=== PATIENT | male | born 1990 | race Two or more races ===

== ENCOUNTER 2021-01-07 16:24 | Inpatient (IN) | payer SELFPAY ==
[~2021-01-07] VITALS: Ht 165.1 cm; Wt 85.3 kg
[2021-01-07] MEDS ORDERED: MORPHINE SULFATE 4 MG/ML INJ. IVP ONE ×2 (16:45→18:45)
[2021-01-07 16:46] LABS: BASO # 0.1 x10^3/uL (0.0-0.2); BASO % 1 % (0-3); EOS # 0.1 x10^3/uL (0.0-0.7); EOS % 1 % (0-3); HEMATOCRIT 43.5 % (39.0-53.0); HEMOGLOBIN 15.2 g/dL (13.0-17.5); LYMPH # 2.8 x10^3/uL (1.0-4.8); LYMPH % 32 % (24-48); MEAN CORPUSCULAR HEMOGLOBIN 32 pg (25-35); MEAN CORPUSCULAR HGB CONC 35 g/dL (31-37); MEAN CORPUSCULAR VOLUME 92 fL (79-100); MONO # 0.8 x10^3/uL (0.0-1.1); MONO % 10 % (0-9); NEUT # 4.9 x10^3/uL (1.8-7.7); NEUT % 56 % (31-73); PLATELET COUNT 259 x10^3/uL (140-400); RED BLOOD COUNT 4.74 x10^6/uL (4.30-5.70); RED CELL DISTRIBUTION WIDTH 13.3 % (11.5-14.5); WHITE BLOOD COUNT 8.7 x10^3/uL (4.0-11.0)
[2021-01-07 16:51] LABS: CALCIUM 9.5 mg/dL (8.5-10.1); CREATININE 1.3 mg/dL (0.7-1.3); POTASSIUM 4.4 mmol/L (3.5-5.1)
[2021-01-07 16:56] LABS: ALBUMIN 4.2 g/dL (3.4-5.0); ALBUMIN/GLOBULIN RATIO 1.1 (1.0-1.7); TOTAL BILIRUBIN 0.5 mg/dL (0.2-1.0)
--- NOTE | 2021-01-07 16:59 | PHYS DOC ---
Past Medical History Additional Past Medical Histor: Previous right ankle surgery Past Surgical History: Other Additional Past Surgical Histo: Right leg/knee General Adult EDM: Chief Complaint: TRAUMA ALERT HPI: HPI: Patient is a 30 year old male who presents with a fall from a ladder. States that he was approximately 10 feet high when the feet slipped out from under him. He fell down and landed on his feet. Had immediate ankle pain bilaterally. Unsure whether he hit his head or passed out. Has some mild pain in his buttocks and low back, but otherwise pain is isolated to his bilateral ankles.He is not on any blood thinners. He does report a history of previous right ankle fracture and surgical fixation. Review of Systems: Review of Systems: Constitutional: Denies fever or chills. [] Eyes: Denies change in visual acuity. [] HENT: Denies nasal congestion or sore throat. [] Respiratory: Denies cough or shortness of breath. [] Cardiovascular: Denies chest pain or edema. [] GI: Denies abdominal pain, nausea, vomiting, bloody stools or diarrhea. [] : Denies dysuria. [] Musculoskeletal: + Right ankle pain, buttocks, and low back pain. [] Integument: Denies rash. [] Neurologic: Denies headache, focal weakness or sensory changes. [] Endocrine: Denies polyuria or polydipsia. [] Lymphatic: Denies swollen glands. [] Psychiatric: Denies depression or anxiety. [] Heart Score: C/O Chest Pain: No Risk Factors: Risk Factors: DM, Current or recent (<one month) smoker, HTN, HLP, family history of CAD, obesity. Risk Scores: Score 0 - 3: 2.5% MACE over next 6 weeks - Discharge Home Score 4 - 6: 20.3% MACE over next 6 weeks - Admit for Clinical Observation Score 7 - 10: 72.7% MACE over next 6 weeks - Early Invasive Strategies Current Medications: Current Medications Medications (Trade) Dose Ordered Sig/Kaleb Start Time Stop Time Status Last Admin Dose Admin Morphine Sulfate (Morphine Sulfate) 4 mg 1X ONCE 01/07/21 16:45 01/07/21 16:46 DC 01/07/21 16:48 4 MG Allergies: Allergies: Allergies Coded Allergies Type Severity Reaction Last Updated Verified No Known Drug Allergies 01/07/21 No Physical Exam: PE: Constitutional: Acutely uncomfortable. Tremulous with pain. [] HENT: No evidence of head or facial trauma. Midface stable. No blood in the nares or mouth.. [] Eyes: PERRLA, EOMI, conjunctiva normal, no discharge. [] Neck: Trachea midline. No C-spine tenderness to palpation. [] Cardiovascular:Heart rate regular rhythm, no murmur [] Lungs & Thorax: Bilateral breath sounds clear to auscultation. Normal chest excursion bilaterally. No crepitus. No tenderness to the chest wall. [] Abdomen: soft, no tenderness, [] Skin: Warm, dry, no erythema, no rash. [] Back: No tenderness, no CVA tenderness. [] Extremities: Pelvis stable to medial and posterior compression. Pubic symphysis stable. Bilateral ankle edema. Has tenderness to the lateral and medial malleoli bilaterally. No tenderness overlying the knees or proximal fibula. Bilateral DP pulses 2+. Neurologic: Alert and oriented X 3, normal motor function, normal sensory function, no focal deficits noted. [] Current Patient Data: Labs: Laboratory Tests Test 01/07/21 16:30 White Blood Count 8.7 x10^3/uL (4.0-11.0) Red Blood Count 4.74 x10^6/uL (4.30-5.70) Hemoglobin 15.2 g/dL (13.0-17.5) Hematocrit 43.5 % (39.0-53.0) Mean Corpuscular Volume 92 fL (79-100) Mean Corpuscular Hemoglobin 32 pg (25-35) Mean Corpuscular Hemoglobin Concent 35 g/dL (31-37) Red Cell Distribution Width 13.3 % (11.5-14.5) Platelet Count 259 x10^3/uL (140-400) Neutrophils (%) (Auto) 56 % (31-73) Lymphocytes (%) (Auto) 32 % (24-48) Monocytes (%) (Auto) 10 % (0-9) H Eosinophils (%) (Auto) 1 % (0-3) Basophils (%) (Auto) 1 % (0-3) Neutrophils # (Auto) 4.9 x10^3/uL (1.8-7.7) Lymphocytes # (Auto) 2.8 x10^3/uL (1.0-4.8) Monocytes # (Auto) 0.8 x10^3/uL (0.0-1.1) Eosinophils # (Auto) 0.1 x10^3/uL (0.0-0.7) Basophils # (Auto) 0.1 x10^3/uL (0.0-0.2) Sodium Level 143 mmol/L (136-145) Potassium Level 4.4 mmol/L (3.5-5.1) Chloride Level 104 mmol/L (98-107) Carbon Dioxide Level 26 mmol/L (21-32) Anion Gap 13 (6-14) Blood Urea Nitrogen 13 mg/dL (8-26) Creatinine 1.3 mg/dL (0.7-1.3) Estimated GFR (Cockcroft-Gault) 64.0 BUN/Creatinine Ratio 10 (6-20) Glucose Level 82 mg/dL (70-99) Calcium Level 9.5 mg/dL (8.5-10.1) Total Bilirubin Pending Aspartate Amino Transferase (AST) Pending Alanine Aminotransferase (ALT) Pending Alkaline Phosphatase Pending Total Protein Pending Albumin Pending Albumin/Globulin Ratio Pending Laboratory Tests 01/07/21 16:30 Laboratory Tests 01/07/21 16:30 Vital Signs: Vital Signs Date Time Temp Pulse Resp B/P (MAP) Pulse Ox O2 Delivery O2 Flow Rate FiO2 01/07/21 16:48 20 98 Room Air 01/07/21 16:24 98.4 88 116/83 98.4 EKG: EKG: [] Radiology/Procedures: Radiology/Procedures: [] Impression: [facility] [address] [place] [address] IMAGING REPORT Signed PATIENT: TAMIKO PEARCE: [id number] : 1990 LOCATION: ER AGE: 30 SEX: M EXAM STATUS: PRE ER ORD. PHYSICIAN: HERNAN RAMIRES MD REASON: fall from ladder PROCEDURE: CT LUMBAR SPINE WO CONTRAST CT LUMBAR SPINE WO Date: 01/07/2021 5:05 PM Indication: fall from ladder, pain Comparison: None. Technique: Helical CT images of the lumbar spine were obtained without contrast. Coronal and sagittal reformatted images were also performed. One or more of the following dose reduction techniques were utilized: Automated exposure control (AEC), Adjustment of mA and/or kV according to patient size, Use of iterative reconstruction technique such as ASiR, CT scan done according to ALARA and image gently/image wisely. Findings: The lumbar spine is normally aligned. No acute fracture. Bilateral L5 pars defects. Vertebral body heights are maintained without compression deformity. The intervertebral disc spaces are normal. No aggressive lytic or blastic osseous lesion. No high grade spinal canal stenosis or neuroforaminal narrowing. No soft tissue abnormality within the visualized abdomen or pelvis. The visualized abdominal aorta is normal caliber. IMPRESSION: No acute osseous abnormality of the lumbar spine. Electronically signed by: Edilson Henao MD (01/07/2021 5:32 PM) [facility] DICTATED and SIGNED BY: EDILSON HENAO MD DATE: 01/07/21 [id number] 0 [facility] [address] [place] [address] IMAGING REPORT Signed PATIENT: TESHA PEARCEOUNT: [id number] : 1990 LOCATION: ER AGE: 30 SEX: M EXAM STATUS: PRE ER ORD. PHYSICIAN: HERNAN RAMIRES MD REASON: fall from ladder PROCEDURE: CT LUMBAR SPINE WO CONTRAST CT LUMBAR SPINE WO Date: 01/07/2021 5:05 PM Indication: fall from ladder, pain Comparison: None. Technique: Helical CT images of the lumbar spine were obtained without contrast. Coronal and sagittal reformatted images were also performed. One or more of the following dose reduction techniques were utilized: Automated exposure control (AEC), Adjustment of mA and/or kV according to patient size, Use of iterative reconstruction technique such as ASiR, CT scan done according to ALARA and image gently/image wisely. Findings: The lumbar spine is normally aligned. No acute fracture. Bilateral L5 pars defects. Vertebral body heights are maintained without compression deformity. The intervertebral disc spaces are normal. No aggressive lytic or blastic osseous lesion. No high grade spinal canal stenosis or neuroforaminal narrowing. No soft tissue abnormality within the visualized abdomen or pelvis. The visualized abdominal aorta is normal caliber. IMPRESSION: No acute osseous abnormality of the lumbar spine. Electronically signed by: Edilson Henao MD (01/07/2021 5:32 PM) [facility] DICTATED and SIGNED BY: EDILSON HENAO MD DATE: 01/07/21 [id number] 0 [facility] [address] [place] [address] [facility] [address] [place] [address] IMAGING REPORT Signed PATIENT: TESHA PEARCEOUNT: [id number] : 1990 LOCATION: ER AGE: 30 SEX: M EXAM STATUS: PRE ER ORD. PHYSICIAN: HERNAN RAMIRES MD REASON: fall from ladder onto feet PROCEDURE: CHEST AP ONLY XR CHEST 1V INDICATION: Reason: fall from ladder onto feet / Spl. Instructions: / History: . COMPARISON STUDY: None. FINDINGS: Lungs: Normal lung volume. No pulmonary mass or consolidation. The tracheobronchial tree and hilar structures are normal. Pleura: No pleural effusion or pneumothorax. Heart and Mediastinum: The cardiomediastinal silhouette is normal. The great vessels of the thorax are normal. Bones and Soft Tissues: The bones and soft tissues are within normal limits. IMPRESSION: No acute cardiopulmonary process. Electronically signed by: Edilson Henao MD (01/07/2021 5:39 PM) [facility] DICTATED and SIGNED BY: EDILSON HENAO MD DATE: 01/07/21 [id number] 0 Course & Med Decision Making: Course & Med Decision Making Pertinent Labs and Imaging studies reviewed. (See chart for details) Patient a 30-year-old male who fell from approximately 10 feet off of a ladder onto his feet. He has bilateral ankle deformities and swelling. On arrival is afebrile and hemodynamically stable. Primary survey negative. Secondary survey notable primarily for ankle deformities. Given distracting injuries and unclear history of head trauma CT head and neck was obtained. Pelvic and chest x-rays did not show any acute traumatic process. X-rays of bilateral feet and ankles ordered. Given his ankle deformities and low back pain did obtain a lumbar CT. 457 CT imaging of the head, neck, lumbar spine negative. X-ray shows a medial malleolar fracture on the right as well as a lateral talar fracture on the right. He is also fractured his talus through the body on the left. Given bilateral lower extremity fractures will require admission. Will discuss with hospitalist and orthopedist on-call. Placed in b/l posterior slab and stirrup splints. [address] Stein (orthopedist) and Dr. Hawkins (foot and ankle specialist). Dr. Hawkins will manage the patient. He is recommending outpatient surgical fixation. He has requested a CT of bilateral feet for surgical planning of talar fx. Feel the patient will require admission for pain control and PT evaluation given b/l fractures. 1854 Emiliano Disclaimer: Emiliano Disclaimer: This electronic medical record was generated, in whole or in part, using a voice recognition dictation system. Departure Departure Impression: Primary Impression: Closed fracture of body of left talus Additional Impressions: Closed fracture of right talus Medial malleolar fracture Disposition: ADMITTED INPATIENT Admitting Physician: VIVEK Jaime) Condition: STABLE HERNAN RAMIRES MD Jan 07, 2021 16:58
[2021-01-07 17:12] LABS: TOTAL PROTEIN 8.1 g/dL (6.4-8.2)
--- NOTE | 2021-01-07 17:32 | RAD ---
CT HEAD AND C-SPINE WO Date: 01/07/2021 5:05 PM Clinical Indication: Reason: fall from ladder / Spl. Instructions: / History: Comparison: None. Technique: 5 mm axial tomographic images were obtained of the head without contrast. These were view ed on brain and bone windows. CT imaging of the cervical spine was performed without contrast. Coron al and sagittal reformatted images were performed. One or more of the following dose reduction techni ques were utilized: Automated exposure control (AEC), Adjustment of mA and/or kV according to patient size, Use of iterative reconstruction technique such as ASiR, CT scan done according to ALARA and im age gently/image wisely HEAD FINDINGS: The brain parenchyma is normal in attenuation. No intra- or extra-axial mass or fluid collection. No acute hemorrhage. The ventricles are normal in size, shape, and morphology. The erwin-white matter cris ction is normal. The basilar cisterns are patent. The visualized paranasal sinuses are normal. The visualized portions of the orbits and globes are no rmal. The mastoid air cells are clear. No aggressive osseous lesion or fracture. CERVICAL SPINE FINDINGS: The cervical spine is normally aligned. No acute fracture. No aggressive lytic or blastic osseous les ion. The intervertebral disc heights are maintained. No high-grade spinal canal stenosis or neural foramin al narrowing. The thyroid gland is normal. No cervical lymphadenopathy. The visualized aerodigestive tract is unrem arkable. The visualized lung apices are clear. IMPRESSION: 1. No acute intracranial process. 2. No acute osseous abnormality of the cervical spine. Electronically signed by: Mariusz Henao MD (01/07/2021 5:30 PM) [facility]
--- NOTE | 2021-01-07 17:35 | RAD ---
CT LUMBAR SPINE WO Date: 01/07/2021 5:05 PM Indication: fall from ladder, pain Comparison: None. Technique: Helical CT images of the lumbar spine were obtained without contrast. Coronal and sagitta l reformatted images were also performed. One or more of the following dose reduction techniques were utilized: Automated exposure control (AEC), Adjustment of mA and/or kV according to patient size, Us e of iterative reconstruction technique such as ASiR, CT scan done according to ALARA and image gentl y/image wisely. Findings: The lumbar spine is normally aligned. No acute fracture. Bilateral L5 pars defects. Vertebral body he ights are maintained without compression deformity. The intervertebral disc spaces are normal. No agg ressive lytic or blastic osseous lesion. No high grade spinal canal stenosis or neuroforaminal narrowing. No soft tissue abnormality within the visualized abdomen or pelvis. The visualized abdominal aorta is normal caliber. IMPRESSION: No acute osseous abnormality of the lumbar spine. Electronically signed by: Mariusz Henao MD (01/07/2021 5:32 PM) [facility]
--- NOTE | 2021-01-07 17:39 | RAD ---
XR BILAT FEET 3 VIEWS, XR EXAM OF ANKLE 3V DATE: 01/07/2021 4:35 PM INDICATION: Pain, fall from ladder onto feet COMPARISON: None. FINDINGS: Right: Acute nondisplaced medial malleolus fracture. Acute nondisplaced fracture of the lateral talar process. Prior ORIF of the tibia with intramedullary maria a. The ankle mortise is congruent. No widenin g of the distal tibiofibular syndesmosis. Lisfranc's joint is congruent. Soft tissue swelling about t he ankle. Left: There is no evidence of acute fracture or dislocation. The ankle mortise is congruent. No widen ing of the distal tibiofibular syndesmosis. Lisfranc's joint is congruent. Soft tissue swelling about the ankle. IMPRESSION: 1. Right: Acute nondisplaced medial malleolus and lateral talar process fractures. 2. Left: No acute fracture. Electronically signed by: Mariusz Henao MD (01/07/2021 5:37 PM) [facility]
--- NOTE | 2021-01-07 17:40 | RAD ---
XR PELVIS 1-2V DATE: 01/07/2021 4:35 PM INDICATION: Pain, fall from ladder onto feet COMPARISON: None. FINDINGS: Bones: There is no evidence of acute fracture or dislocation. Joints: The joint spaces are normal. Miscellaneous: None. IMPRESSION: No evidence of acute fracture. Electronically signed by: Mariusz Henao MD (01/07/2021 5:38 PM) [facility]
--- NOTE | 2021-01-07 17:41 | RAD ---
XR CHEST 1V INDICATION: Reason: fall from ladder onto feet / Spl. Instructions: / History: . COMPARISON STUDY: None. FINDINGS: Lungs: Normal lung volume. No pulmonary mass or consolidation. The tracheobronchial tree and hilar st ructures are normal. Pleura: No pleural effusion or pneumothorax. Heart and Mediastinum: The cardiomediastinal silhouette is normal. The great vessels of the thorax ar e normal. Bones and Soft Tissues: The bones and soft tissues are within normal limits. IMPRESSION: No acute cardiopulmonary process. Electronically signed by: Mariusz Henao MD (01/07/2021 5:39 PM) [facility]
[2021-01-07] MEDS ORDERED: DEXTROSE 50% 25 GM / 50ML DISP.SYRIN. IV PRN (19:15)
[2021-01-07] MEDS ORDERED: PROCHLORPERAZINE 10 MG/2 ML VIAL. IV PRN (19:15)
[2021-01-07] MEDS ORDERED: DOCUSATE SODIUM 100 MG CAPSULE. PO PRN (19:15)
[2021-01-07] MEDS ORDERED: SENNOSIDES 8.6 MG TABLET PO PRN (19:15)
[2021-01-07] MEDS ORDERED: ACETAMINOPHEN 325 MG TABLET. PO PRN (19:15)
[2021-01-07] MEDS ORDERED: ONDANSETRON PF 4 MG/2 ML VIAL. IVP PRN (19:15)
--- NOTE | 2021-01-07 19:17 | PDOC1 ---
History and Physical Date of Service: DOS: DATE: 01/07/21 TIME: 19:11 Chief Complaint: Chief Complain: Fall from 10 foot height History of Present Illness: HPI: Patient is a 30-year-old Kittitian-speaking male who presents as a trauma alert after a fall from a 10 foot ladder. Patient states he was painting the house when he slipped from the ladder and landed on his feet. There is immediate ankle pain after he landed. Denies any loss of consciousness or trauma to the head. No medical history. Patient has had a previous right ankle surgery. Denies any blood thinners, fevers, chest pain, shortness of breath, abdominal pain, syncope, palpitation or irregular heart rhythms or dysuria. Past Medical/Surgical History: PMH/PSH: No past medical history Right ankle surgery Allergies: Allergies: Coded Allergies: No Known Drug Allergies (Unverified , 01/07/21) Family History: Family History: Reviewed with no relevant findings Social History: Social History: Denies any alcohol, smoking or drug abuse. Current Medications: Current Medications Current Medications Morphine Sulfate (Morphine Sulfate) 4 mg 1X ONCE IVP Last administered on 01/07/21at 16:48; Start 01/07/21 at 16:45; Stop 01/07/21 at 16:46; Status DC Morphine Sulfate (Morphine Sulfate) 4 mg 1X ONCE IVP Last administered on 01/07/21at 18:28; Start 01/07/21 at 18:45; Stop 01/07/21 at 18:46; Status DC ROS: Review of Systems Review of System REVIEW OF SYSTEMS: GENERAL: Denies weakness SKIN: No bruising, hair changes or rashes. EYES: No blurred, double or loss of vision. NOSE AND THROAT: No history of nosebleeds, hoarseness or sore throat. HEART: No history of palpitations, chest pain or shortness of breath on exertion. LUNGS: Denies cough, hemoptysis, wheezing or shortness of breath. GASTROINTESTINAL: Denies changes in appetite, nausea, vomiting, diarrhea or constipation. GENITOURINARY: No history of frequency, urgency, hesitancy or nocturia. NEUROLOGIC: Denies history of numbness, tingling, or tremor. PSYCHIATRIC: No history of panic, anxiety or depression. ENDOCRINE: No history of heat or cold intolerance, polyuria or polydipsia. EXTREMITIES: Positive right leg pain Physical Exam: Vital Signs: Vital Signs Date Time Temp Pulse Resp B/P (MAP) Pulse Ox O2 Delivery O2 Flow Rate FiO2 01/07/21 18:28 Room Air 01/07/21 17:05 90 18 119/76 (90) 94 01/07/21 16:24 98.4 98.4 Physcial Exam: General: Well developed, well nourished, no acute distress, well appearing HEENT: Pupils equally round and reactive to light, EOMI, no discharge, normal conjunctiva Neck: Supple, no nuchal rigidity, no JVD, trachea midline, no tenderness Cardiac: RRR, no murmurs, no gallops, no rubs Chest/Lungs: CTAB, no wheeze, no rhonchi, no crackles Abdomen: soft, non-distended, no guarding, no peritoneal signs, non-tender Back: No tenderness Extremities: Bilateral lower extremities and casting. Less than 3-second capillary refill. Warm extremities upper and lower. Neuro: Alert and oriented x 4, no focal deficits, normal speech Labs: Labs: Laboratory Tests Test 01/07/21 16:30 White Blood Count 8.7 x10^3/uL (4.0-11.0) Red Blood Count 4.74 x10^6/uL (4.30-5.70) Hemoglobin 15.2 g/dL (13.0-17.5) Hematocrit 43.5 % (39.0-53.0) Mean Corpuscular Volume 92 fL (79-100) Mean Corpuscular Hemoglobin 32 pg (25-35) Mean Corpuscular Hemoglobin Concent 35 g/dL (31-37) Red Cell Distribution Width 13.3 % (11.5-14.5) Platelet Count 259 x10^3/uL (140-400) Neutrophils (%) (Auto) 56 % (31-73) Lymphocytes (%) (Auto) 32 % (24-48) Monocytes (%) (Auto) 10 % (0-9) Eosinophils (%) (Auto) 1 % (0-3) Basophils (%) (Auto) 1 % (0-3) Neutrophils # (Auto) 4.9 x10^3/uL (1.8-7.7) Lymphocytes # (Auto) 2.8 x10^3/uL (1.0-4.8) Monocytes # (Auto) 0.8 x10^3/uL (0.0-1.1) Eosinophils # (Auto) 0.1 x10^3/uL (0.0-0.7) Basophils # (Auto) 0.1 x10^3/uL (0.0-0.2) Sodium Level 143 mmol/L (136-145) Potassium Level 4.4 mmol/L (3.5-5.1) Chloride Level 104 mmol/L (98-107) Carbon Dioxide Level 26 mmol/L (21-32) Anion Gap 13 (6-14) Blood Urea Nitrogen 13 mg/dL (8-26) Creatinine 1.3 mg/dL (0.7-1.3) Estimated GFR (Cockcroft-Gault) 64.0 BUN/Creatinine Ratio 10 (6-20) Glucose Level 82 mg/dL (70-99) Calcium Level 9.5 mg/dL (8.5-10.1) Total Bilirubin 0.5 mg/dL (0.2-1.0) Aspartate Amino Transf (AST/SGOT) 42 U/L (15-37) Alanine Aminotransferase (ALT/SGPT) 67 U/L (16-63) Alkaline Phosphatase 82 U/L (46-116) Total Protein 8.1 g/dL (6.4-8.2) Albumin 4.2 g/dL (3.4-5.0) Albumin/Globulin Ratio 1.1 (1.0-1.7) Laboratory Tests Test 01/07/21 16:30 White Blood Count 8.7 x10^3/uL (4.0-11.0) Red Blood Count 4.74 x10^6/uL (4.30-5.70) Hemoglobin 15.2 g/dL (13.0-17.5) Hematocrit 43.5 % (39.0-53.0) Mean Corpuscular Volume 92 fL (79-100) Mean Corpuscular Hemoglobin 32 pg (25-35) Mean Corpuscular Hemoglobin Concent 35 g/dL (31-37) Red Cell Distribution Width 13.3 % (11.5-14.5) Platelet Count 259 x10^3/uL (140-400) Neutrophils (%) (Auto) 56 % (31-73) Lymphocytes (%) (Auto) 32 % (24-48) Monocytes (%) (Auto) 10 % (0-9) Eosinophils (%) (Auto) 1 % (0-3) Basophils (%) (Auto) 1 % (0-3) Neutrophils # (Auto) 4.9 x10^3/uL (1.8-7.7) Lymphocytes # (Auto) 2.8 x10^3/uL (1.0-4.8) Monocytes # (Auto) 0.8 x10^3/uL (0.0-1.1) Eosinophils # (Auto) 0.1 x10^3/uL (0.0-0.7) Basophils # (Auto) 0.1 x10^3/uL (0.0-0.2) Sodium Level 143 mmol/L (136-145) Potassium Level 4.4 mmol/L (3.5-5.1) Chloride Level 104 mmol/L (98-107) Carbon Dioxide Level 26 mmol/L (21-32) Anion Gap 13 (6-14) Blood Urea Nitrogen 13 mg/dL (8-26) Creatinine 1.3 mg/dL (0.7-1.3) Estimated GFR (Cockcroft-Gault) 64.0 BUN/Creatinine Ratio 10 (6-20) Glucose Level 82 mg/dL (70-99) Calcium Level 9.5 mg/dL (8.5-10.1) Total Bilirubin 0.5 mg/dL (0.2-1.0) Aspartate Amino Transf (AST/SGOT) 42 U/L (15-37) Alanine Aminotransferase (ALT/SGPT) 67 U/L (16-63) Alkaline Phosphatase 82 U/L (46-116) Total Protein 8.1 g/dL (6.4-8.2) Albumin 4.2 g/dL (3.4-5.0) Albumin/Globulin Ratio 1.1 (1.0-1.7) Images: Images PROCEDURE: CT HEAD AND CERVICAL SPINE WO ADDENDUM ADDENDUM #1 Addendum: Correction: On the left, there is an acute fracture through the body of the talus extending to the subtalar joint Findings discussed with Dr. Chase. Electronically signed by: Mariusz Henao MD (01/07/2021 5:56 PM) [facility] ORIGINAL REPORT CT HEAD AND C-SPINE WO Date: 01/07/2021 5:05 PM Clinical Indication: Reason: fall from ladder / Spl. Instructions: / History: Comparison: None. Technique: 5 mm axial tomographic images were obtained of the head without contrast. These were viewed on brain and bone windows. CT imaging of the cervical spine was performed without contrast. Coronal and sagittal reformatted images were performed. One or more of the following dose reduction techniques were utilized: Automated exposure control (AEC), Adjustment of mA and/or kV according to patient size, Use of iterative reconstruction technique such as ASiR, CT scan done according to ALARA and image gently/image wisely HEAD FINDINGS: The brain parenchyma is normal in attenuation. No intra- or extra-axial mass or fluid collection. No acute hemorrhage. The ventricles are normal in size, shape, and morphology. The erwin-white matter junction is normal. The basilar cisterns are patent. The visualized paranasal sinuses are normal. The visualized portions of the orbits and globes are normal. The mastoid air cells are clear. No aggressive osseous lesion or fracture. CERVICAL SPINE FINDINGS: The cervical spine is normally aligned. No acute fracture. No aggressive lytic or blastic osseous lesion. The intervertebral disc heights are maintained. No high-grade spinal canal stenosis or neural foraminal narrowing. The thyroid gland is normal. No cervical lymphadenopathy. The visualized aerodigestive tract is unremarkable. The visualized lung apices are clear. IMPRESSION: 1. No acute intracranial process. 2. No acute osseous abnormality of the cervical spine. PROCEDURE: CHEST AP ONLY XR CHEST 1V INDICATION: Reason: fall from ladder onto feet / Spl. Instructions: / History: . COMPARISON STUDY: None. FINDINGS: Lungs: Normal lung volume. No pulmonary mass or consolidation. The tracheobronchial tree and hilar structures are normal. Pleura: No pleural effusion or pneumothorax. Heart and Mediastinum: The cardiomediastinal silhouette is normal. The great vessels of the thorax are normal. Bones and Soft Tissues: The bones and soft tissues are within normal limits. IMPRESSION: No acute cardiopulmonary process. PROCEDURE: ANKLE BILAT 3V XR BILAT FEET 3 VIEWS, XR EXAM OF ANKLE 3V DATE: 01/07/2021 4:35 PM INDICATION: Pain, fall from ladder onto feet COMPARISON: None. FINDINGS: Right: Acute nondisplaced medial malleolus fracture. Acute nondisplaced fracture of the lateral talar process. Prior ORIF of the tibia with intramedullary maria a. T he ankle mortise is congruent. No widening of the distal tibiofibular syndesmosis. Lisfranc's joint is congruent. Soft tissue swelling about the ankle. Left: There is no evidence of acute fracture or dislocation. The ankle mortise is congruent. No widening of the distal tibiofibular syndesmosis. Lisfranc's joint is congruent. Soft tissue swelling about the ankle. IMPRESSION: 1. Right: Acute nondisplaced medial malleolus and lateral talar process fractures. 2. Left: No acute fracture. Assessment/Plan Assessment/Plan Trauma Mechanical fall from ladder Right acute nondisplaced medial malleolus and lateral talar process fractures Admit to hospitalist service for further management IV n.p.o. pain control Orthopedic consult External casting in the ED Neurovascular checks per floor protocol Defer to orthopedics for DVT prophylaxis Not indicated now GI prophylaxis ADA diet Full code Discussed with RN and SW Disposition inpatient management as above Surrogate decision maker is Justifications for Admission Other Justification SUBHA DAVIS MD Jan 07, 2021 19:17
--- NOTE | 2021-01-07 19:43 | RAD ---
Exam: Right tibia and fibula INDICATION: Trauma TECHNIQUE: Frontal and lateral views of the right tibia and fibula Comparisons: Ankle radiographs same day FINDINGS: Intramedullary nail at the tibia with fixation screws proximally and distally. There is a fracture to the medial malleolus. Soft tissues are unremarkable. Joint spaces are well-maintained. IMPRESSION: Redemonstration of medial malleolus fracture. Electronically signed by: Preston Espinoza MD (01/07/2021 7:41 PM) [facility]
--- NOTE | 2021-01-07 19:54 | RAD ---
CTA bilateral lower extremities without contrast HISTORY: Bilateral talar fracture Axial helical images were obtained from above the knees through the feet without contrast and axial c oronal sagittal reconstruction was performed. FINDINGS: There is beam Belcher artifact due to a long intramedullary maria a in the right tibia which transfixes a healed fracture of the distal third of the right tibia. There is also an old healed fracture the pro ximal fibula. On the right is an oblique minimally comminuted nondisplaced fracture through the lateral talus and t here is a oblique nondisplaced fracture through the medial malleolus at the level plafond and appear there is an old avulsion injury from the tip of the medial malleolus. On the left there is a mildly comminuted oblique fracture through the mid talus which is minimally di stracted but nondisplaced. There are few tiny fragments which have avulsed from the talus both latera lly and medially. IMPRESSION: Bilateral talar fractures and fracture of the right medial malleolus. End impression PQRS Compliance Statement: One or more of the following individualized dose reduction techniques were utilized for this examinat ion: 1. Automated exposure control 2. Adjustment of the mA and/or kV according to patient size 3. Use of iterative reconstruction technique Electronically signed by: Mg López III, MD (01/07/2021 7:52 PM) [facility]
[2021-01-07 20:55] VITALS: BP 124/73
[2021-01-07] MEDS: IV NORMAL SALINE 1000ML BAG 1,000 ML IV SCH (22:55)
[2021-01-07 23:00] VITALS: BP 122/79
[2021-01-07] MEDS: MORPHINE SULFATE 2 MG/ML INJ. IVP PRN (23:03)
[2021-01-08 03:40] VITALS: BP 116/75
[2021-01-08] MEDS: MORPHINE SULFATE 2 MG/ML INJ. IVP PRN (04:01)
[2021-01-08] MEDS: HYDROcodone/APAP 5/325MG 1 TAB TABLET PO PRN ×3 (04:22→20:11)
[2021-01-08] MEDS: IV NORMAL SALINE 1000ML BAG 1,000 ML IV SCH ×3 (05:15→15:15)
[2021-01-08 07:00] VITALS: BP 113/66
[2021-01-08 09:01] LABS: BASO # 0.1 x10^3/uL (0.0-0.2); BASO % 1 % (0-3); EOS # 0.1 x10^3/uL (0.0-0.7); EOS % 2 % (0-3); HEMATOCRIT 42.9 % (39.0-53.0); HEMOGLOBIN 14.7 g/dL (13.0-17.5); LYMPH # 2.6 x10^3/uL (1.0-4.8); LYMPH % 32 % (24-48); MEAN CORPUSCULAR HEMOGLOBIN 32 pg (25-35); MEAN CORPUSCULAR HGB CONC 34 g/dL (31-37); MEAN CORPUSCULAR VOLUME 93 fL (79-100); MONO % 12 % (0-9); NEUT # 4.3 x10^3/uL (1.8-7.7); NEUT % 53 % (31-73); PLATELET COUNT 225 x10^3/uL (140-400); RED CELL DISTRIBUTION WIDTH 13.8 % (11.5-14.5); WHITE BLOOD COUNT 8.1 x10^3/uL (4.0-11.0)
[2021-01-08 09:16] LABS: CALCIUM 8.8 mg/dL (8.5-10.1); CREATININE 1.1 mg/dL (0.7-1.3); GFR 77.6; MAGNESIUM 1.9 mg/dL (1.8-2.4); PHOSPHORUS 2.9 mg/dL (2.6-4.7); POTASSIUM 3.8 mmol/L (3.5-5.1)
[2021-01-08 11:00] VITALS: BP 107/49
--- NOTE | 2021-01-08 14:31 | PDOC ---
[facility] PROGRESS NOTE Date of Service DOS: DATE: 01/08/21 TIME: 14:28 History of Present Illness History of Present Illness Patient is a 30-year-old Beninese-speaking male who presents as a trauma alert after a fall from a 10 foot ladder. Patient states he was painting the house when he slipped from the ladder and landed on his feet. There is immediate ankle pain after he landed. Denies any loss of consciousness or trauma to the head. No medical history. Patient has had a previous right ankle surgery. Denies any blood thinners, fevers, chest pain, shortness of breath, abdominal pain, syncope, palpitation or irregular heart rhythms or dysuria. 01/08/21 Patient seen and examined at bedside. Reports pain is well controlled. Awaiting plan from orthopedics. Otherwise no changes. Vitals/I&O Vitals/I&O: Vital Signs Date Time Temp Pulse Resp B/P (MAP) Pulse Ox O2 Delivery O2 Flow Rate FiO2 01/08/21 11:00 98.4 96 18 107/49 (68) 97 Room Air 98.4 I & O 01/07/21 01/07/21 01/08/21 15:00 23:00 07:00 Intake Total 120 ml Output Total 250 ml Balance -130 ml Physical Exam General: Alert, Oriented X3, Cooperative Heart: Regular rate, Normal S1, Normal S2 Lungs: Clear Abdomen: Normal bowel sounds, Soft Extremities: Other (Bilateral lower extremities wrapped in soft cast) Skin: No rashes, No significant lesion Labs Labs: Laboratory Tests Test 01/07/21 16:30 01/08/21 08:15 White Blood Count 8.7 x10^3/uL (4.0-11.0) 8.1 x10^3/uL (4.0-11.0) Red Blood Count 4.74 x10^6/uL (4.30-5.70) 4.60 x10^6/uL (4.30-5.70) Hemoglobin 15.2 g/dL (13.0-17.5) 14.7 g/dL (13.0-17.5) Hematocrit 43.5 % (39.0-53.0) 42.9 % (39.0-53.0) Mean Corpuscular Volume 92 fL (79-100) 93 fL (79-100) Mean Corpuscular Hemoglobin 32 pg (25-35) 32 pg (25-35) Mean Corpuscular Hemoglobin Concent 35 g/dL (31-37) 34 g/dL (31-37) Red Cell Distribution Width 13.3 % (11.5-14.5) 13.8 % (11.5-14.5) Platelet Count 259 x10^3/uL (140-400) 225 x10^3/uL (140-400) Neutrophils (%) (Auto) 56 % (31-73) 53 % (31-73) Lymphocytes (%) (Auto) 32 % (24-48) 32 % (24-48) Monocytes (%) (Auto) 10 % (0-9) 12 % (0-9) Eosinophils (%) (Auto) 1 % (0-3) 2 % (0-3) Basophils (%) (Auto) 1 % (0-3) 1 % (0-3) Neutrophils # (Auto) 4.9 x10^3/uL (1.8-7.7) 4.3 x10^3/uL (1.8-7.7) Lymphocytes # (Auto) 2.8 x10^3/uL (1.0-4.8) 2.6 x10^3/uL (1.0-4.8) Monocytes # (Auto) 0.8 x10^3/uL (0.0-1.1) 1.0 x10^3/uL (0.0-1.1) Eosinophils # (Auto) 0.1 x10^3/uL (0.0-0.7) 0.1 x10^3/uL (0.0-0.7) Basophils # (Auto) 0.1 x10^3/uL (0.0-0.2) 0.1 x10^3/uL (0.0-0.2) Sodium Level 143 mmol/L (136-145) 139 mmol/L (136-145) Potassium Level 4.4 mmol/L (3.5-5.1) 3.8 mmol/L (3.5-5.1) Chloride Level 104 mmol/L (98-107) 105 mmol/L (98-107) Carbon Dioxide Level 26 mmol/L (21-32) 29 mmol/L (21-32) Anion Gap 13 (6-14) 5 (6-14) Blood Urea Nitrogen 13 mg/dL (8-26) 14 mg/dL (8-26) Creatinine 1.3 mg/dL (0.7-1.3) 1.1 mg/dL (0.7-1.3) Estimated GFR (Cockcroft-Gault) 64.0 77.6 BUN/Creatinine Ratio 10 (6-20) Glucose Level 82 mg/dL (70-99) 92 mg/dL (70-99) Calcium Level 9.5 mg/dL (8.5-10.1) 8.8 mg/dL (8.5-10.1) Total Bilirubin 0.5 mg/dL (0.2-1.0) Aspartate Amino Transf (AST/SGOT) 42 U/L (15-37) Alanine Aminotransferase (ALT/SGPT) 67 U/L (16-63) Alkaline Phosphatase 82 U/L (46-116) Total Protein 8.1 g/dL (6.4-8.2) Albumin 4.2 g/dL (3.4-5.0) Albumin/Globulin Ratio 1.1 (1.0-1.7) Phosphorus Level 2.9 mg/dL (2.6-4.7) Magnesium Level 1.9 mg/dL (1.8-2.4) Review of Systems Review of Systems: Other than lower extremity pain no complaints Assessment and Plan Assessmemt and Plan Problems Medical Problems: (1) Closed fracture of body of left talus Status: Acute (2) Closed fracture of right talus Status: Acute (3) Medial malleolar fracture Status: Acute Trauma Mechanical fall from ladder Right acute nondisplaced medial malleolus and lateral talar process fractures Admit to hospitalist service for further management Awaiting surgical plan. Told no operation Orthopedic consult External casting in the ED Neurovascular checks per floor protocol Defer to orthopedics for DVT prophylaxis Not indicated now GI prophylaxis ADA diet Full code Discussed with RN and SW Disposition inpatient management as above Surrogate decision maker is Comment Review of Relevant I have reviewed the following items riky (where applicable) has been applied. Medications: Current Medications Medications (Trade) Dose Ordered Sig/Kaleb Route PRN Reason Start Time Stop Time Status Last Admin Dose Admin Morphine Sulfate (Morphine Sulfate) 4 mg 1X ONCE IVP 01/07/21 16:45 01/07/21 16:46 DC 01/07/21 16:48 Morphine Sulfate (Morphine Sulfate) 4 mg 1X ONCE IVP 01/07/21 18:45 01/07/21 18:46 DC 01/07/21 18:28 Sodium Chloride 1,000 ml @ 100 mls/hr Q10H IV 01/07/21 19:15 01/08/21 09:40 Acetaminophen/ Hydrocodone Bitart (Lortab 5/325) 1 tab PRN Q4HRS PRN PO MODERATE PAIN 01/07/21 19:15 01/08/21 04:22 Morphine Sulfate (Morphine Sulfate) 2 mg PRN Q2HR PRN IVP SEVERE PAIN 7-10 01/07/21 19:15 01/08/21 19:14 01/08/21 04:01 Justifications for Admission Other Justification Trauma with fall and right ankle fracture WELLINGTON CRUZ MD Jan 08, 2021 14:31
[2021-01-08 15:02] VITALS: BP 106/63
[2021-01-08 19:15] VITALS: BP 116/64
--- NOTE | 2021-01-08 22:42 | CONS ---
DATE OF CONSULTATION: 01/08/2021 ORTHOPEDIC CONSULTATION REQUESTING PHYSICIAN: Rocael Mclaughlin MD. REASON FOR CONSULTATION: Fall with pain in both feet and ankles. HISTORY OF PRESENT ILLNESS: The patient is a 30-year-old male who was interviewed today with the assistance of a British-speaking nurse acting as computer programming manager. He indicates that he fell from about a 10-foot height on a ladder when he was painting a house and landed on both feet. He had immediate pain in both ankles. Denies any other injury. He did not hit his head. There is no loss of consciousness and he does indicate a history of previous right knee surgery in the remote past. PAST MEDICAL HISTORY: He denies any medical problems. PAST SURGICAL HISTORY: Only for the right knee surgery. ALLERGIES: He has no known drug allergies. MEDICATIONS: No current medications. SOCIAL HISTORY: Denies smoking, alcohol or drug use. REVIEW OF SYSTEMS: Negative for any other recent illness, constitutional symptoms of fever, chills and no other joint injury, no focal weakness or numbness, tingling, only the throbbing pain in both ankles. PHYSICAL EXAMINATION: GENERAL: A pleasant, cooperative 30-year-old male, alert and oriented, no acute distress. EXTREMITIES: He is examined in bed with both legs splinted and elevated. He can wiggle his toes. Distal capillary refill and sensation are intact. He has normal alignment, stability, bilateral hips and knees. IMAGING STUDIES: Imaging findings of both ankles show a talar body fracture with slight distraction on the left side based on a CT findings and the right ankle has a displaced medial malleolar fracture and minimal displacement of the lateral process talus fracture. IMPRESSION: 1. Left talus body fracture. 2. Right medial malleolus fracture with nondisplaced lateral process talus fracture. 3. History of fall on his feet from a 10-foot ladder while painting. TREATMENT PLAN: I had discussed with my Foot and Ankle colleague, Dr. Hawkins the possible treatment of this gentleman and while currently, he seems to have significant swelling after the injury, Dr. Hawkins preferred to have him elevate and let swelling resolve over whatever time. This required likely over the next several days and reevaluate when surgery is possible based on resolution of his swelling for operative reduction of the left talar body fracture as well as the medial malleolus fracture on the right. He remains nonweightbearing in the interim due to both injuries and all his questions were answered in the interim as well. DEWAYNE DR: Nathaniel TID: [id number]
[2021-01-08 23:23] VITALS: BP 109/67
[2021-01-09] MEDS: IV NORMAL SALINE 1000ML BAG 1,000 ML IV SCH ×3 (01:15→21:25)
[2021-01-09 03:34] VITALS: BP 114/72
[2021-01-09 05:26] LABS: BASO # 0.1 x10^3/uL (0.0-0.2); BASO % 1 % (0-3); EOS # 0.2 x10^3/uL (0.0-0.7); EOS % 3 % (0-3); HEMATOCRIT 42.2 % (39.0-53.0); HEMOGLOBIN 14.5 g/dL (13.0-17.5); LYMPH # 3.2 x10^3/uL (1.0-4.8); LYMPH % 41 % (24-48); MEAN CORPUSCULAR HEMOGLOBIN 33 pg (25-35); MEAN CORPUSCULAR HGB CONC 34 g/dL (31-37); MEAN CORPUSCULAR VOLUME 94 fL (79-100); MONO # 0.8 x10^3/uL (0.0-1.1); MONO % 10 % (0-9); NEUT # 3.4 x10^3/uL (1.8-7.7); NEUT % 45 % (31-73); PLATELET COUNT 214 x10^3/uL (140-400); RED BLOOD COUNT 4.46 x10^6/uL (4.30-5.70); RED CELL DISTRIBUTION WIDTH 13.4 % (11.5-14.5); WHITE BLOOD COUNT 7.7 x10^3/uL (4.0-11.0)
[2021-01-09 05:36] LABS: CALCIUM 8.7 mg/dL (8.5-10.1); GFR 86.6; MAGNESIUM 1.9 mg/dL (1.8-2.4); POTASSIUM 4.2 mmol/L (3.5-5.1)
[2021-01-09] MEDS: HYDROcodone/APAP 5/325MG 1 TAB TABLET PO PRN ×3 (06:17→21:25)
[2021-01-09 07:00] VITALS: BP 123/76
--- NOTE | 2021-01-09 10:02 | NUR ---
SW following. Discussed with RN, pt from home, room air, regular diet. PT/OT ordered. Pt needing bed rest until surgery, however cannot have surgery due to swelling. Med Assist following for self pay status. SW will continue to follow.
[2021-01-09 11:00] VITALS: BP 121/77
--- NOTE | 2021-01-09 11:36 | PDOC ---
[facility] PROGRESS NOTE Date of Service DOS: DATE: 01/09/21 TIME: 11:32 Chief Complaint Chief Complaint Trauma Mechanical fall from ladder Right acute nondisplaced medial malleolus and lateral talar process fractures Admit to hospitalist service for further management IV n.p.o. pain control Orthopedic consult External casting in the ED Neurovascular checks per floor protocol Defer to orthopedics for DVT prophylaxis Not indicated now GI prophylaxis ADA diet Full code Discussed with RN and SW Disposition inpatient management as above Surrogate decision maker is History of Present Illness History of Present Illness Patient is a 30-year-old Guinean-speaking male who presents as a trauma alert after a fall from a 10 foot ladder. Patient states he was painting the house when he slipped from the ladder and landed on his feet. There is immediate ankle pain after he landed. Denies any loss of consciousness or trauma to the head. No medical history. Patient has had a previous right ankle surgery. Denies any blood thinners, fevers, chest pain, shortness of breath, abdominal pain, syncope, palpitation or irregular heart rhythms or dysuria. 01/09/2021: Afebrile. Pain controlled. I believe orthopedic surgery plan is to allow the swelling to subside over the next few days and then reevaluate for surgery at that time. Keep nonweightbearing until surgical intervention. Discussed with RN. 01/08/21 Patient seen and examined at bedside. Reports pain is well controlled. Awaiting plan from orthopedics. Otherwise no changes. Vitals/I&O Vitals/I&O: Vital Signs Date Time Temp Pulse Resp B/P (MAP) Pulse Ox O2 Delivery O2 Flow Rate FiO2 01/09/21 08:00 Room Air 01/09/21 07:00 98.0 93 18 123/76 (92) 93 98.0 I & O 01/08/21 01/08/21 01/09/21 15:00 23:00 07:00 Intake Total 240 ml Output Total 700 ml Balance -460 ml Physical Exam General: Alert, Oriented X3, Cooperative Heart: Regular rate, Normal S1, Normal S2 Lungs: Clear Abdomen: Normal bowel sounds, Soft Extremities: Other (Bilateral lower extremities wrapped in soft cast) Skin: No rashes, No significant lesion Labs Labs: Laboratory Tests Test 01/09/21 04:45 White Blood Count 7.7 x10^3/uL (4.0-11.0) Red Blood Count 4.46 x10^6/uL (4.30-5.70) Hemoglobin 14.5 g/dL (13.0-17.5) Hematocrit 42.2 % (39.0-53.0) Mean Corpuscular Volume 94 fL (79-100) Mean Corpuscular Hemoglobin 33 pg (25-35) Mean Corpuscular Hemoglobin Concent 34 g/dL (31-37) Red Cell Distribution Width 13.4 % (11.5-14.5) Platelet Count 214 x10^3/uL (140-400) Neutrophils (%) (Auto) 45 % (31-73) Lymphocytes (%) (Auto) 41 % (24-48) Monocytes (%) (Auto) 10 % (0-9) Eosinophils (%) (Auto) 3 % (0-3) Basophils (%) (Auto) 1 % (0-3) Neutrophils # (Auto) 3.4 x10^3/uL (1.8-7.7) Lymphocytes # (Auto) 3.2 x10^3/uL (1.0-4.8) Monocytes # (Auto) 0.8 x10^3/uL (0.0-1.1) Eosinophils # (Auto) 0.2 x10^3/uL (0.0-0.7) Basophils # (Auto) 0.1 x10^3/uL (0.0-0.2) Sodium Level 140 mmol/L (136-145) Potassium Level 4.2 mmol/L (3.5-5.1) Chloride Level 106 mmol/L (98-107) Carbon Dioxide Level 27 mmol/L (21-32) Anion Gap 7 (6-14) Blood Urea Nitrogen 9 mg/dL (8-26) Creatinine 1.0 mg/dL (0.7-1.3) Estimated GFR (Cockcroft-Gault) 86.6 Glucose Level 100 mg/dL (70-99) Calcium Level 8.7 mg/dL (8.5-10.1) Magnesium Level 1.9 mg/dL (1.8-2.4) Assessment and Plan Assessmemt and Plan Problems Medical Problems: (1) Closed fracture of body of left talus Status: Acute (2) Closed fracture of right talus Status: Acute (3) Medial malleolar fracture Status: Acute Comment Review of Relevant I have reviewed the following items riky (where applicable) has been applied. Justifications for Admission Other Justification Trauma with fall and right ankle fracture NOE JIMENEZ MD Jan 09, 2021 11:36
[2021-01-09] MEDS: HEPARIN for SUB-Q USE 5,000 UNIT/ML VIAL. SQ SCH ×2 (12:35→22:24)
--- NOTE | 2021-01-09 13:44 | PDOC2 ---
CONSULT Date of Consult Date of Consult DATE: 01/09/21 TIME: 13:29 Reason for Consult Reason for Consult: Bilateral foot and ankle pain following a fall from 10 feet-height Referring Physician Referring Physician: Dr. Chase Identification/Chief Complaint Chief Complaint Bilateral foot and ankle pain History of Present Illness Reason for Visit: S/p [01/07/21] fell from a 10-feet ladder, and landed on bilateral feet. He denied hitting the head, anticoagulation therapy. Subsequent ER evaluation consisted of x-ray of the ankle and foot, bilateral which remarked a nondisplaced medial malleolar fracture, nondisplaced but comminuted lateral talar process fracture, right; left talar neck/body comminuted fracture. Because the fractures were minimally to nondisplaced, and both lower extremities were swollen, the decision was made against external fixator application, emergent surgery, but rather, splint immobilization. Further CT of bilateral lower extremity was ordered. At bedside, patient denies any pain to either foot or ankle. However at times, left medial ankle/ rear foot inflicts upwards to 8 out of 10 throbbing achy pain, worse with motion and at night. Otherwise, he has been compliant with nonweightbearing status and bed rest restriction. Patient carries a history of right distal tibial fracture and subsequent ORIF. 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 He says that the family will visit for postoperative recovery. Patient is also Tristanian-speaking. The encounter and interview was conducted with the help of YADIRA Sutherland on the floor. Current Problem List Problem List Problems Medical Problems: (1) Closed fracture of body of left talus Status: Acute (2) Closed fracture of right talus Status: Acute (3) Medial malleolar fracture Status: Acute Current Medications Current Medications Current Medications Morphine Sulfate (Morphine Sulfate) 4 mg 1X ONCE IVP Last administered on 12/25 09/14at 16:48; Start 01/07/21 at 16:45; Stop 01/07/21 at 16:46; Status DC Morphine Sulfate (Morphine Sulfate) 4 mg 1X ONCE IVP Last administered on 01/07/21at 18:28; Start 01/07/21 at 18:45; Stop 01/07/21 at 18:46; Status DC Sennosides (Senna) 17.2 mg PRN BID PRN PO CONSTIPATION; Start 01/07/21 at 19:15 Docusate Sodium (Colace) 100 mg PRN DAILY PRN PO HARD STOOLS; Start 01/07/21 at 19:15 Ondansetron HCl (Zofran) 4 mg PRN Q6HRS PRN IVP NAUSEA/VOMITING, 1st CHOICE; Start 01/07/21 at 19:15 Dextrose (Dextrose 50%-Water Syringe) 12.5 gm PRN Q15MIN PRN IV SEE COMMENTS; Start 01/07/21 at 19:15 Sodium Chloride 1,000 ml @ 100 mls/hr Q10H IV Last administered on 01/09/21at 12:27; Start 01/07/21 at 19:15 Acetaminophen (Tylenol) 650 mg PRN Q4HRS PRN PO TEMP OVER 100.4F OR MILD PAIN; Start 01/07/21 at 19:15 Acetaminophen/ Hydrocodone Bitart (Lortab 5/325) 1 tab PRN Q4HRS PRN PO MODERATE PAIN Last administered on 01/08/21at 04:22; Start 01/07/21 at 19:15 Acetaminophen/ Hydrocodone Bitart (Lortab 5/325) 2 tab PRN Q4HRS PRN PO SEVERE PAIN Last administered on 01/09/21at 06:17; Start 01/07/21 at 19:15 Morphine Sulfate (Morphine Sulfate) 1 mg PRN Q1HR PRN IV PAIN; Start 01/07/21 at 19:15 Morphine Sulfate (Morphine Sulfate) 2 mg PRN Q2HR PRN IVP SEVERE PAIN 7-10 Last administered on 01/08/21at 04:01; Start 01/07/21 at 19:15; Stop 01/08/21 at 19:14; Status DC Prochlorperazine Edisylate (Compazine) 10 mg PRN Q6HRS PRN IV NAUSEA/VOMITING- 2ND CHOICE; Start 01/07/21 at 19:15 Heparin Sodium (Porcine) (Heparin Sodium) 5,000 unit Q8HRS SQ Last administered on 01/09/21at 12:35; Start 01/09/21 at 14:00 Allergies Allergies: Coded Allergies: No Known Drug Allergies (Unverified , 01/07/21) ROS General: No: Chills, Night Sweats, Fatigue, Malaise, Appetite, Other PSYCHOLOGICAL ROS: No: Anxiety, Behavioral Disorder, Concentration difficultie, Decreased libido, Depression, Disorientation, Hallucinations, Hostility, Irritablity, Memory difficulties, Mood Swings, Obsessive thoughts, Physical abuse, Sexual abuse, Sleep disturbances, Suicidal ideation, Other ALLERGY AND IMMUNOLOGY: No: Hives, Insect Bite Sensitivity, Itchy/Watery Eyes, Nasal Congestion, Post Nasal Drip, Seasonal Allergies, Other Hematological and Lymphatic: No: Bleeding Problems, Blood Clots, Blood Transfusions, Brusing, Night Sweats, Pallor, Swollen Lymph Nodes, Other ENDOCRINE: No: Breast Changes, Galactorrhea, Hair Pattern Changes, Hot Flashes, Malaise/lethargy, Mood Swings, Palpitations, Polydipsia/polyuria, Skin Changes, Temperature Intolerance, Unexpected Weight Changes, Other Respiratory: No: Cough, Hemoptysis, Orthopnea, Pleuritic Pain, Shortness of breath, SOB with excertion, Sputum Changes, Stridor, Tachypnea, Wheezing, Other Cardiovascular: No Chest Pain, No Palpitations, No Orthopnea, No Paroxysmal Noc. Dyspnea, No Edema, No Lt Headedness, No Other Musculoskeletal: Yes Gait Disturbance, Yes Joint Pain, Yes Joint Stiffness Neurological: No Behavorial Changes, No Bowel/Bladder ControlChng, No Confusion, No Dizziness, No Gait Disturbance, No Headaches, No Impaired Coord/balance, No Memory Loss, No Numbness/Tingling, No Seizures, No Speech Problems, No Tremors, No Visual Changes, No Weakness, No Other Skin: Yes Dry Skin Physical Exam General: Alert, Oriented X3, Cooperative, No acute distress Heart: Other (No significant edema to the digits or the dorsal right foot or ankle. CFT less than 3 seconds 1 through 5, bilateral) Skin: No breakdown, Other (No fracture blisters, skin tenting, or open lesion. Limited window through the splint anteriorly and medially, there is no severe ecchymosis to the provisional surgical site along the talar body/neck, left. There is no severe ecchymosis to the medial malleolus, right either.) Neuro: Sensation intact, Other (Able to move digits without any pain or limitation) MUSCULOSKELETAL: Other (-Left: minimal to no TTP to the dorsal and medial aspect of the talar head and neck, range of motion across the TMJ, subtalar joint and ankle joint was deferred as the lower extremity was immobilized in a posterior splint and sugar tong.-Right: No TTP to medial anterior ankle gutter, ankle and subtalar range of motion was deferred due to the posterior splint and sugar tong.) Vitals VITALS Vital Signs Date Time Temp Pulse Resp B/P (MAP) Pulse Ox O2 Delivery O2 Flow Rate FiO2 01/09/21 11:00 98.4 66 14 121/77 (92) 99 Room Air 98.4 Labs Labs Laboratory Tests Test 01/07/21 16:30 01/08/21 08:15 01/09/21 04:45 White Blood Count 8.7 x10^3/uL (4.0-11.0) 8.1 x10^3/uL (4.0-11.0) 7.7 x10^3/uL (4.0-11.0) Red Blood Count 4.74 x10^6/uL (4.30-5.70) 4.60 x10^6/uL (4.30-5.70) 4.46 x10^6/uL (4.30-5.70) Hemoglobin 15.2 g/dL (13.0-17.5) 14.7 g/dL (13.0-17.5) 14.5 g/dL (13.0-17.5) Hematocrit 43.5 % (39.0-53.0) 42.9 % (39.0-53.0) 42.2 % (39.0-53.0) Mean Corpuscular Volume 92 fL (79-100) 93 fL (79-100) 94 fL (79-100) Mean Corpuscular Hemoglobin 32 pg (25-35) 32 pg (25-35) 33 pg (25-35) Mean Corpuscular Hemoglobin Concent 35 g/dL (31-37) 34 g/dL (31-37) 34 g/dL (31-37) Red Cell Distribution Width 13.3 % (11.5-14.5) 13.8 % (11.5-14.5) 13.4 % (11.5-14.5) Platelet Count 259 x10^3/uL (140-400) 225 x10^3/uL (140-400) 214 x10^3/uL (140-400) Neutrophils (%) (Auto) 56 % (31-73) 53 % (31-73) 45 % (31-73) Lymphocytes (%) (Auto) 32 % (24-48) 32 % (24-48) 41 % (24-48) Monocytes (%) (Auto) 10 % (0-9) 12 % (0-9) 10 % (0-9) Eosinophils (%) (Auto) 1 % (0-3) 2 % (0-3) 3 % (0-3) Basophils (%) (Auto) 1 % (0-3) 1 % (0-3) 1 % (0-3) Neutrophils # (Auto) 4.9 x10^3/uL (1.8-7.7) 4.3 x10^3/uL (1.8-7.7) 3.4 x10^3/uL (1.8-7.7) Lymphocytes # (Auto) 2.8 x10^3/uL (1.0-4.8) 2.6 x10^3/uL (1.0-4.8) 3.2 x10^3/uL (1.0-4.8) Monocytes # (Auto) 0.8 x10^3/uL (0.0-1.1) 1.0 x10^3/uL (0.0-1.1) 0.8 x10^3/uL (0.0-1.1) Eosinophils # (Auto) 0.1 x10^3/uL (0.0-0.7) 0.1 x10^3/uL (0.0-0.7) 0.2 x10^3/uL (0.0-0.7) Basophils # (Auto) 0.1 x10^3/uL (0.0-0.2) 0.1 x10^3/uL (0.0-0.2) 0.1 x10^3/uL (0.0-0.2) Sodium Level 143 mmol/L (136-145) 139 mmol/L (136-145) 140 mmol/L (136-145) Potassium Level 4.4 mmol/L (3.5-5.1) 3.8 mmol/L (3.5-5.1) 4.2 mmol/L (3.5-5.1) Chloride Level 104 mmol/L (98-107) 105 mmol/L (98-107) 106 mmol/L (98-107) Carbon Dioxide Level 26 mmol/L (21-32) 29 mmol/L (21-32) 27 mmol/L (21-32) Anion Gap 13 (6-14) 5 (6-14) 7 (6-14) Blood Urea Nitrogen 13 mg/dL (8-26) 14 mg/dL (8-26) 9 mg/dL (8-26) Creatinine 1.3 mg/dL (0.7-1.3) 1.1 mg/dL (0.7-1.3) 1.0 mg/dL (0.7-1.3) Estimated GFR (Cockcroft-Gault) 64.0 77.6 86.6 BUN/Creatinine Ratio 10 (6-20) Glucose Level 82 mg/dL (70-99) 92 mg/dL (70-99) 100 mg/dL (70-99) Calcium Level 9.5 mg/dL (8.5-10.1) 8.8 mg/dL (8.5-10.1) 8.7 mg/dL (8.5-10.1) Total Bilirubin 0.5 mg/dL (0.2-1.0) Aspartate Amino Transf (AST/SGOT) 42 U/L (15-37) Alanine Aminotransferase (ALT/SGPT) 67 U/L (16-63) Alkaline Phosphatase 82 U/L (46-116) Total Protein 8.1 g/dL (6.4-8.2) Albumin 4.2 g/dL (3.4-5.0) Albumin/Globulin Ratio 1.1 (1.0-1.7) Phosphorus Level 2.9 mg/dL (2.6-4.7) Magnesium Level 1.9 mg/dL (1.8-2.4) 1.9 mg/dL (1.8-2.4) Laboratory Tests Test 01/09/21 04:45 White Blood Count 7.7 x10^3/uL (4.0-11.0) Red Blood Count 4.46 x10^6/uL (4.30-5.70) Hemoglobin 14.5 g/dL (13.0-17.5) Hematocrit 42.2 % (39.0-53.0) Mean Corpuscular Volume 94 fL (79-100) Mean Corpuscular Hemoglobin 33 pg (25-35) Mean Corpuscular Hemoglobin Concent 34 g/dL (31-37) Red Cell Distribution Width 13.4 % (11.5-14.5) Platelet Count 214 x10^3/uL (140-400) Neutrophils (%) (Auto) 45 % (31-73) Lymphocytes (%) (Auto) 41 % (24-48) Monocytes (%) (Auto) 10 % (0-9) Eosinophils (%) (Auto) 3 % (0-3) Basophils (%) (Auto) 1 % (0-3) Neutrophils # (Auto) 3.4 x10^3/uL (1.8-7.7) Lymphocytes # (Auto) 3.2 x10^3/uL (1.0-4.8) Monocytes # (Auto) 0.8 x10^3/uL (0.0-1.1) Eosinophils # (Auto) 0.2 x10^3/uL (0.0-0.7) Basophils # (Auto) 0.1 x10^3/uL (0.0-0.2) Sodium Level 140 mmol/L (136-145) Potassium Level 4.2 mmol/L (3.5-5.1) Chloride Level 106 mmol/L (98-107) Carbon Dioxide Level 27 mmol/L (21-32) Anion Gap 7 (6-14) Blood Urea Nitrogen 9 mg/dL (8-26) Creatinine 1.0 mg/dL (0.7-1.3) Estimated GFR (Cockcroft-Gault) 86.6 Glucose Level 100 mg/dL (70-99) Calcium Level 8.7 mg/dL (8.5-10.1) Magnesium Level 1.9 mg/dL (1.8-2.4) Images Images CT of bilateral lower extremity: Right: S/p distal tibial fracture and proximal fibula fracture and subsequent IM nail. Questionable re-stress to the proximal fibula fracture? Or partial pseudoarthrosis across the fracture site. Comminuted, nondisplaced lateral talar process fracture. Accessory bone to the distal medial malleolus. The syndesmotic joint is intact without any subluxation. No posterior tibial fracture noted. Left: Comminuted, minimally to nondisplaced talar neck and body fracture without subtalar joint or ankle joint subluxation. The medial articular surface/facet has the most comminution. Accessory bone to the distal medial malleolus. Assessment/Plan Assessment/Plan -Explained clinical and x-ray/CT findings to patient. So far, the medial malleolus fracture is isolated and without any surrounding or concomitant posterior fracture, fibula fracture. However given the contralateral talar fracture involvement, I recommended open reduction and internal fixation of the medial malleolus to provide a stable ankle mortise to allow partial weig htbearing. Intraoperatively, I will also stress the syndesmotic joint and possible place a syndesmotic screw/suture tape for stabilization. Although the lateral talar fracture is comminuted, however it is nondisplaced. Surgical ORIF is challenging and may cause more soft tissue damage than splinting instead. Regarding the left talar fracture, the comminution and mild displacement warrant surgical intervention with the goal of better articular surface/range of motion/function adventist. However we need to optimize soft tissue, and allow swelling reduction before making incisions to avoid postoperative dehiscence or infection. Therefore recommended surgical intervention on January 11, 2021. -I discussed in depth and details regarding the risks of arthritis from the time of injury, possible nerve/tendon damage, risk of infection, DVT and the recovery course consisted of nonweightbearing to left/right lower extremity for 6 to 8 weeks followed by physical therapy, duration pending clinical progression. Patient verbalized understanding and consented for the procedures: Right medial malleolar ORIF, possible syndesmotic joint stabilization, left talar neck/body ORIF. -Activity: Elevate bilateral lower extremity 45 minutes/h, ice behind the knee 15 minutes/h, per tolerance Strict nonweightbearing restriction to bilateral lower extremity Strict bed rest with bedside commode privilege -PT/OT: Upper body mobility exercises, avoid plantar ankle, foot range of motion or manipulation -Pain management: RICE therapy, continue with current regimen -DVT prophylaxis: Recommend Lovenox, 40mg, subq daily, stop 24 hours before surgery and resume 24 hours after -N.p.o. after midnight on January 10 -Appreciate social work associate's help on placement after surgery: Recommend patient staying at the hospital for pain management until surgery and may stay for another 24 hours for postoperative pain management and then discharge as appropriate Informed Consent Discussion: I have discussed the purpose, risks, benefits, and alternatives to the procedure and plan of care including potential side effects and complications, both of which may be severe and require additional surgery and/or procedures to treat this with the patient/guardian(s). We discussed the risks and benefits of alternative treatment options and the likelihood of achieving the desired outcome with surgery. Procedure specific discussion is documented below. The risks, benefits and alternatives of the proposed surgery were discussed with the patient, including the option of further non-operative treatment. The possibility of perioperative complications leading to disability and were explained. Patient understands the risks of surgery include but are not limited to failure of the procedure, delayed or non-healing wound, bleeding, infection, venous thrombus/embolus, nerve, vessel, tendon and bone damage, the complications of anesthesia, reaction to sutures or other implanted material, stiffness, chronic pain/swelling, malunion/nonunion, the need for other operations and future revision surgery. No guarantees were given or implied. The patient's questions were answered in depth and patient is willing to proceed. MONICA GARCIA DPM Jan 09, 2021 13:44
[2021-01-09 15:00] VITALS: BP 110/76
[2021-01-09] MEDS: MORPHINE SULFATE 2 MG/ML INJ. IV PRN (17:21)
[2021-01-09 19:00] VITALS: BP 115/84
[2021-01-09 23:00] VITALS: BP 112/80
[2021-01-10 02:50] VITALS: BP 108/84
[2021-01-10] MEDS: HEPARIN for SUB-Q USE 5,000 UNIT/ML VIAL. SQ SCH ×3 (05:56→23:54)
[2021-01-10 07:00] VITALS: BP 115/79
[2021-01-10] MEDS: IV NORMAL SALINE 1000ML BAG 1,000 ML IV SCH ×2 (07:51→17:47)
[2021-01-10] MEDS: MORPHINE SULFATE 2 MG/ML INJ. IV PRN ×2 (07:52→14:40)
[2021-01-10] MEDS: HYDROcodone/APAP 5/325MG 1 TAB TABLET PO PRN ×3 (07:52→23:46)
[2021-01-10 11:00] VITALS: BP 122/74
[2021-01-10 13:01] LABS: BASO % 1 % (0-3); EOS # 0.2 x10^3/uL (0.0-0.7); EOS % 3 % (0-3); HEMATOCRIT 44.2 % (39.0-53.0); LYMPH # 2.3 x10^3/uL (1.0-4.8); LYMPH % 38 % (24-48); MEAN CORPUSCULAR HEMOGLOBIN 32 pg (25-35); MEAN CORPUSCULAR HGB CONC 34 g/dL (31-37); MEAN CORPUSCULAR VOLUME 94 fL (79-100); MONO # 0.5 x10^3/uL (0.0-1.1); MONO % 8 % (0-9); NEUT # 3.1 x10^3/uL (1.8-7.7); NEUT % 50 % (31-73); PLATELET COUNT 262 x10^3/uL (140-400); RED CELL DISTRIBUTION WIDTH 13.4 % (11.5-14.5); WHITE BLOOD COUNT 6.1 x10^3/uL (4.0-11.0)
[2021-01-10 13:15] LABS: CREATININE 0.9 mg/dL (0.7-1.3); GFR 97.8; POTASSIUM 4.2 mmol/L (3.5-5.1)
[2021-01-10 15:00] VITALS: BP 116/68
--- NOTE | 2021-01-10 16:33 | PDOC ---
[facility] PROGRESS NOTE Date of Service DOS: DATE: 01/10/21 TIME: 16:32 Chief Complaint Chief Complaint Trauma Mechanical fall from ladder Right acute nondisplaced medial malleolus and lateral talar process fractures Admit to hospitalist service for further management IV n.p.o. pain control Orthopedic consult External casting in the ED Neurovascular checks per floor protocol Defer to orthopedics for DVT prophylaxis Not indicated now GI prophylaxis ADA diet Full code Discussed with RN and SW Disposition inpatient management as above Surrogate decision maker is History of Present Illness History of Present Illness Patient is a 30-year-old Nauruan-speaking male who presents as a trauma alert after a fall from a 10 foot ladder. Patient states he was painting the house when he slipped from the ladder and landed on his feet. There is immediate ankle pain after he landed. Denies any loss of consciousness or trauma to the head. No medical history. Patient has had a previous right ankle surgery. Denies any blood thinners, fevers, chest pain, shortness of breath, abdominal pain, syncope, palpitation or irregular heart rhythms or dysuria. 01/10/2021: Afebrile. Denies significant pain. Surgery planned for tomorrow. He will need to begin working with PT/OT on the day following surgery. Discussed with RN. 01/09/2021: Afebrile. Pain controlled. I believe orthopedic surgery plan is to allow the swelling to subside over the next few days and then reevaluate for surgery at that time. Keep nonweightbearing until surgical intervention. Discussed with RN. 01/08/21 Patient seen and examined at bedside. Reports pain is well controlled. Awaiting plan from orthopedics. Otherwise no changes. Vitals/I&O Vitals/I&O: Vital Signs Date Time Temp Pulse Resp B/P (MAP) Pulse Ox O2 Delivery O2 Flow Rate FiO2 01/10/21 15:10 Room Air 01/10/21 15:00 98.0 74 16 116/68 (84) 96 98.0 I & O 01/09/21 01/09/21 01/10/21 15:00 23:00 07:00 Output Total 550 ml Balance -550 ml Physical Exam General: Alert, Oriented X3, Cooperative, No acute distress Heart: Other (No significant edema to the digits or the dorsal right foot or ankle. CFT less than 3 seconds 1 through 5, bilateral) Lungs: Clear Abdomen: Normal bowel sounds, Soft Extremities: Other (Bilateral lower extremities wrapped in soft cast) Skin: No breakdown, Other (No fracture blisters, skin tenting, or open lesion. Limited window through the splint anteriorly and medially, there is no severe ecchymosis to the provisional surgical site along the talar body/neck, left. There is no severe ecchymosis to the medial malleolus, right either.) Labs Labs: Laboratory Tests Test 01/10/21 12:05 White Blood Count 6.1 x10^3/uL (4.0-11.0) Red Blood Count 4.70 x10^6/uL (4.30-5.70) Hemoglobin 15.0 g/dL (13.0-17.5) Hematocrit 44.2 % (39.0-53.0) Mean Corpuscular Volume 94 fL (79-100) Mean Corpuscular Hemoglobin 32 pg (25-35) Mean Corpuscular Hemoglobin Concent 34 g/dL (31-37) Red Cell Distribution Width 13.4 % (11.5-14.5) Platelet Count 262 x10^3/uL (140-400) Neutrophils (%) (Auto) 50 % (31-73) Lymphocytes (%) (Auto) 38 % (24-48) Monocytes (%) (Auto) 8 % (0-9) Eosinophils (%) (Auto) 3 % (0-3) Basophils (%) (Auto) 1 % (0-3) Neutrophils # (Auto) 3.1 x10^3/uL (1.8-7.7) Lymphocytes # (Auto) 2.3 x10^3/uL (1.0-4.8) Monocytes # (Auto) 0.5 x10^3/uL (0.0-1.1) Eosinophils # (Auto) 0.2 x10^3/uL (0.0-0.7) Basophils # (Auto) 0.0 x10^3/uL (0.0-0.2) Sodium Level 139 mmol/L (136-145) Potassium Level 4.2 mmol/L (3.5-5.1) Chloride Level 103 mmol/L (98-107) Carbon Dioxide Level 30 mmol/L (21-32) Anion Gap 6 (6-14) Blood Urea Nitrogen 11 mg/dL (8-26) Creatinine 0.9 mg/dL (0.7-1.3) Estimated GFR (Cockcroft-Gault) 97.8 Glucose Level 101 mg/dL (70-99) Calcium Level 9.0 mg/dL (8.5-10.1) Magnesium Level 2.0 mg/dL (1.8-2.4) Assessment and Plan Assessmemt and Plan Problems Medical Problems: (1) Closed fracture of body of left talus Status: Acute (2) Closed fracture of right talus Status: Acute (3) Medial malleolar fracture Status: Acute Comment Review of Relevant I have reviewed the following items riky (where applicable) has been applied. Justifications for Admission Other Justification Trauma with fall and right ankle fracture NOE JIMENEZ MD Jan 10, 2021 16:33
[2021-01-10 18:48] VITALS: BP 121/66
[2021-01-10 23:20] VITALS: BP 130/72
[2021-01-11] VITALS (8 sets, daily range): BP systolic 123–136; BP diastolic 65–82
[2021-01-11] MEDS: IV NORMAL SALINE 1000ML BAG 1,000 ML IV SCH (03:15)
[2021-01-11] MEDS ORDERED: HYDROmorphone 2 MG/ML VIAL IVP PRN (06:00)
[2021-01-11] MEDS ORDERED: PROCHLORPERAZINE 10 MG/2 ML VIAL. IVP PRN (06:00)
[2021-01-11] MEDS ORDERED: fentaNYL PF VIAL 100 MCG/2 ML VIAL IVP PRN ×2 (06:00)
[2021-01-11] MEDS ORDERED: MORPHINE SULFATE 2 MG/ML INJ. IVP PRN (06:00)
[2021-01-11] MEDS ORDERED: IV RINGERS,LACTATED 1000ML 1,000 ML IV SCH (06:00)
[2021-01-11] MEDS: HEPARIN for SUB-Q USE 5,000 UNIT/ML VIAL. SQ SCH ×3 (06:00→20:16)
[2021-01-11] MEDS: MORPHINE SULFATE 2 MG/ML INJ. IV PRN ×3 (07:30→19:05)
--- NOTE | 2021-01-11 11:07 | PDOC ---
[facility] PROGRESS NOTE Date of Service DOS: DATE: 01/11/21 TIME: 11:06 Chief Complaint Chief Complaint Trauma Mechanical fall from ladder Right acute nondisplaced medial malleolus and lateral talar process fractures Admit to hospitalist service for further management IV n.p.o. pain control Orthopedic consult External casting in the ED Neurovascular checks per floor protocol Defer to orthopedics for DVT prophylaxis Not indicated now GI prophylaxis ADA diet Full code Discussed with RN and SW Disposition inpatient management as above Surrogate decision maker is History of Present Illness History of Present Illness Patient is a 30-year-old Singaporean-speaking male who presents as a trauma alert after a fall from a 10 foot ladder. Patient states he was painting the house when he slipped from the ladder and landed on his feet. There is immediate ankle pain after he landed. Denies any loss of consciousness or trauma to the head. No medical history. Patient has had a previous right ankle surgery. Denies any blood thinners, fevers, chest pain, shortness of breath, abdominal pain, syncope, palpitation or irregular heart rhythms or dysuria. 01/11/2021: Surgery planned today. Reports some pain in his bilateral feet. Will need to work with PT/OT tomorrow. Discussed with RN. 01/10/2021: Afebrile. Denies significant pain. Surgery planned for tomorrow. He will need to begin working with PT/OT on the day following surgery. Discussed with RN. 01/09/2021: Afebrile. Pain controlled. I believe orthopedic surgery plan is to allow the swelling to subside over the next few days and then reevaluate for surgery at that time. Keep nonweightbearing until surgical intervention. Discussed with RN. 01/08/21 Patient seen and examined at bedside. Reports pain is well controlled. Awaiti ng plan from orthopedics. Otherwise no changes. Vitals/I&O Vitals/I&O: Vital Signs Date Time Temp Pulse Resp B/P (MAP) Pulse Ox O2 Delivery O2 Flow Rate FiO2 01/11/21 11:04 97.9 75 18 136/82 (100) 98 Room Air 97.9 I & O 01/10/21 01/10/21 01/11/21 15:00 23:00 07:00 Intake Total 180 ml 240 ml Output Total 700 ml 550 ml Balance -520 ml -310 ml Physical Exam General: Alert, Oriented X3, Cooperative, No acute distress Heart: Other (No significant edema to the digits or the dorsal right foot or ankle. CFT less than 3 seconds 1 through 5, bilateral) Lungs: Clear Abdomen: Normal bowel sounds, Soft Extremities: Other (Bilateral lower extremities wrapped in soft cast) Skin: No breakdown, Other (No fracture blisters, skin tenting, or open lesion. Limited window through the splint anteriorly and medially, there is no severe ecchymosis to the provisional surgical site along the talar body/neck, left. T here is no severe ecchymosis to the medial malleolus, right either.) Labs Labs: Laboratory Tests Test 01/10/21 12:05 White Blood Count 6.1 x10^3/uL (4.0-11.0) Red Blood Count 4.70 x10^6/uL (4.30-5.70) Hemoglobin 15.0 g/dL (13.0-17.5) Hematocrit 44.2 % (39.0-53.0) Mean Corpuscular Volume 94 fL (79-100) Mean Corpuscular Hemoglobin 32 pg (25-35) Mean Corpuscular Hemoglobin Concent 34 g/dL (31-37) Red Cell Distribution Width 13.4 % (11.5-14.5) Platelet Count 262 x10^3/uL (140-400) Neutrophils (%) (Auto) 50 % (31-73) Lymphocytes (%) (Auto) 38 % (24-48) Monocytes (%) (Auto) 8 % (0-9) Eosinophils (%) (Auto) 3 % (0-3) Basophils (%) (Auto) 1 % (0-3) Neutrophils # (Auto) 3.1 x10^3/uL (1.8-7.7) Lymphocytes # (Auto) 2.3 x10^3/uL (1.0-4.8) Monocytes # (Auto) 0.5 x10^3/uL (0.0-1.1) Eosinophils # (Auto) 0.2 x10^3/uL (0.0-0.7) Basophils # (Auto) 0.0 x10^3/uL (0.0-0.2) Sodium Level 139 mmol/L (136-145) Potassium Level 4.2 mmol/L (3.5-5.1) Chloride Level 103 mmol/L (98-107) Carbon Dioxide Level 30 mmol/L (21-32) Anion Gap 6 (6-14) Blood Urea Nitrogen 11 mg/dL (8-26) Creatinine 0.9 mg/dL (0.7-1.3) Estimated GFR (Cockcroft-Gault) 97.8 Glucose Level 101 mg/dL (70-99) Calcium Level 9.0 mg/dL (8.5-10.1) Magnesium Level 2.0 mg/dL (1.8-2.4) Assessment and Plan Assessmemt and Plan Problems Medical Problems: (1) Closed fracture of body of left talus Status: Acute (2) Closed fracture of right talus Status: Acute (3) Medial malleolar fracture Status: Acute Comment Review of Relevant I have reviewed the following items riky (where applicable) has been applied. Justifications for Admission Other Justification Trauma with fall and right ankle fracture NOE JIMENEZ MD Jan 11, 2021 11:07
[2021-01-11] MEDS ORDERED: BUPIVACAINE MPF 0.25% 30 ML VIAL. ONE (11:29)
[2021-01-11] MEDS ORDERED: BUPIVACAINE-EPI 0.25%-1:200000 MPF 30 ML VIAL. ONE (11:30)
[2021-01-11] MEDS ORDERED: ePHEDrine PF IN SALINE 50 MG/10 ML SYRINGE. IV ONE (11:39)
[2021-01-11] MEDS ORDERED: PROPOFOL 10 MG/ML (20ML) VIAL. IV ONE (11:39)
[2021-01-11] MEDS ORDERED: ONDANSETRON PF 4 MG/2 ML VIAL. ONE (11:39)
[2021-01-11] MEDS ORDERED: PHENYLEPHRINE in 0.9% NACL PF 1 MG/10 ML SYRINGE. IV ONE (11:39)
[2021-01-11] MEDS ORDERED: LIDOCAINE 1% PF 5 ML VIAL. ONE (11:39)
[2021-01-11] MEDS ORDERED: GLYCOPYRROLATE 1 MG/5 ML VIAL. ONE (11:39)
[2021-01-11] MEDS ORDERED: DEXAMETHASONE SOD PHOS 4 MG/ML VIAL ONE (11:39)
[2021-01-11] MEDS ORDERED: MIDAZOLAM HCL/PF 2 MG/2 ML VIAL. ONE (11:40)
[2021-01-11] MEDS ORDERED: NEOSTIGMINE 10 MG/10 ML VIAL. ONE (11:40)
[2021-01-11] MEDS ORDERED: SUCCINYLCHOLINE 200 MG/10 ML VIAL. ONE (11:40)
[2021-01-11] MEDS ORDERED: ROCURONIUM 50 MG/5 ML VIAL. ONE (11:40)
[2021-01-11] MEDS ORDERED: fentaNYL PF VIAL 250 MCG/5 ML VIAL ONE (11:41)
--- NOTE | 2021-01-11 11:45 | NUR ---
SW following. Discussed with RN, pt having surgery today. Med Assist following for self pay status. SW will continue to follow.
[2021-01-11] MEDS ORDERED: BUPIVACAINE MPF 0.5% 30 ML VIAL. ONE (12:23)
[2021-01-11] MEDS ORDERED: HYDROmorphone 2 MG/ML VIAL ONE ×2 (13:18→17:20)
[2021-01-11] MEDS ORDERED: POVIDONE-IODINE 10% TOPICAL OINTMENT 28GM TUBE. TP ONE (15:52)
[2021-01-11] MEDS ORDERED: ceFAZolin SODIUM IV Push 1 GM VIAL. IVP ONE (16:14)
[2021-01-11] MEDS ORDERED: ACETAMINOPHEN 325 MG TABLET. PO ONE (17:00)
[2021-01-11] MEDS ORDERED: oxyCODONE/APAP 5/325 1 TAB TABLET PO ONE (17:00)
--- NOTE | 2021-01-11 17:09 | PDOC4 ---
OPERATIVE NOTE Date: Date: Jan 11, 2021 Pre-Op Diagnosis: Right isolated medial malleolus fracture, nondisplaced without fibular or posterior tibial fracture. Nondisplaced comminuted lateral talar fracture. Left comminuted, minimally displaced talar neck/body fracture with mild compression shortening to the medial talar body. Multiple fracture fragments were also noted on CT at the dorsal anterior talar dome. Post-Op Diagnosis: Same as above Procedure Performed: Right medial malleoli are fracture open reduction and internal fixation Left talar fracture open reduction and internal fixation, ankle arthrotomy, loose body excision from the ankle joint Surgeon: Monica Garcia DPM Anesthesia Type: General Blood Loss: 10 cc Specimans Obtained: None Findings: Right: Isolated to distal medial malodor fracture, stable Lisfranc joint/ligament upon stress, stable proximal fibular remodeling from prior injury, stable upon stress. Left: Comminuted talar body/neck fracture with most of the fragments delaminated dorsally distally at the talar dome. No fracture fragment was noted or encountered to the lateral process. The ossicle bone to the medial malleolus was not palpable or impinging upon range of motion. Mild bony castelan injury and bone loss to the medial dorsal talar dome and neck. Postoperative x-ray noted restored talar neck anatomy/length without varus rotation. The hardware were within acceptable position in length. Ankle mortise and canal view of the left foot and ankle remarked adequate anatomical reduction. Complications: None Operative Note: The patient was brought to the operating room and placed on the table in supine position. A time out was performed, to confirm patient's identity, location of surgery, and procedure. After induction of general anesthesia and intravenous antibiotics, a well-padded pneumatic thigh tourniquet was placed onto both R and L lowert extremities. following standard aspectic technique, a iyer was placed. The bilateral lower extremity was scrubbed, prepped and draped in the usual sterile manner. under intra-op XR guidance, the R ankle joint, fracture site were identified and marked on skin. An Esmarch bandage was utilized to exsanguinate the right lower leg, and the tourniquet was inflated to 250 millimeters of mercury. Attention was directed to the medial right ankle where a standard linear approach was performed. The incision was deepened using sharp and blunt dissection down to the level of the periosteum, which was incised. Care was taken to retract all vital neurovascular structures and all bleeders were cauterized as needed. The fracture was identified and all interposed periosteum was resected away from the fracture site. The posterior tibial tendon was protected throughout the procedure. The wound was copiously irrigated with normal saline. Further lateral talar dome inspection was negative for any OCD lesions. The fracture site was reduced with a bone clamp. Next, two guide pins were placed across the fracture site in a parallel fashion. C-arm was utilized to confirm the placement and length. Next, two 4.0 partially treaded cancellous screws, 40 mm and 42mm,were placed sequentially in AO fashion. The imaging intensifier was then utilized to confirm the positioning, length and to ensure no violation of the articular surface had occurred. Both screws purchased the medial cortex well to compensate for the short length in the setting of a prior IM nail which was concerning for hardware placement limitation.The fracture appeared to be anatomically reduced, and the mortise was anatomic. Subsequent syndesmotic joint stress with dorsiflexion and eversion remarked stability across the ankle gutters without any diastases between the tibia-fibula, gapping to the medial ankle gutter.There was no proximal fibular fracture instability upon syndesmotic stress test either. The wounds were copiously irrigated with normal saline. Closure was performed in layers using 3-0 Vicryl and 4-0 Monocryl, and skin was reapproximated with 4-0 nylon. The surgical site was covered with Xeroform, 4 x 4, and Tegaderm. Medial ankle palpation was negative for any prominent hardware. Mild compression was achieved with Coban. Tourniquet was let down on the right lower extremity which noted adequate hyperemic perfusion. Then the attention was directed to the left talus. Under intraoperative x-ray guidance, the ankle joint, medial and lateral TMJ, medial lateral talar neck were identified and marked for provisional surgical incision placement. An Esmarch was used to exsanguinate the left lower extremity. The pressure was set at 250 millimercury. Medial skin incision was made between the tibialis anterior and posterior tibialis tendons, starting at the distal tibial metaphysis to the level of TNJ. The lateral skin incision was made just lateral to the EDL from the distal syndesmotic joint to the lateral TNJ. Both skin incisions were deepened with blunt dissection with care to protect and retract all neurovascular bundles. After that, the deep fascia was incised with a Bovie in line with the skin incision on both medial lateral ankle. ATFL was transected at the level of the lateral ankle gutter to allow adequate visualization of the talar dome. Care was taken to minimally dissect the TNJ capsule, sinus tarsi, plantar talar neck both medially and laterally to reduce the risk of talar AVN and nonunion. A periosteal elevator was used to elevate the ankle capsule off the talus and to expose/visualize the medial lateral talar dome. The medial lateral windows were connected by rolling the Victoria from the proximal ankle joint distally to the level of mid dorsal talar neck to fully appreciated the extent and character istics of the talar dome/neck fractures. Copious saline solution was used to irrigate the wound site. At this time, Talar dome/neck inspection remarked comminuted partially delaminated and detached fragments to the anterior margin of the talar dome, just distal away from the articular surface. No loose body or free fragments were noted to either medial lateral ankle gutter. On the medial talar neck and head transition site, there was evidence of crush injury with a small void of bone deficit. There was also slight internal rotation of the talus based on the medial cortical read. But upon gentle stress the distal neck talar fracture was relatively stable without gross instability. At this time, copious saline solution again was used to flush the surgical site to reduce and flush out any hematoma. And further inspection was negative for any gross or apparent talar dome lesion given the anterior window inspection. Fracture reduction was achieved with a sharp reduction clamp using the lateral cortical read on the lateral talar dome/neck and also the Mendoza's angle on AP foot view. Then, 2 guidewires for 3 mm cannulated, titanium, headless screws were placed on each the medial and lateral talar neck, perpendicular to the fracture sites, using standard AO techniques. The screws were below the equator of the talar neck for plantar tension stability. Clinically, the fracture sites were reduced without any remarks of varus talar malposition. Adequate and satisfactory screw position and length were confirmed using intraoperative x-ray with special views of 3 views of ankle, 2 views of foot with additional canal view to assess the talar neck. Passive ankle range of motion was negative for any clicking, catching or impingement. The surgical site was irrigated with copious saline solution. The ATFL was reapproximated with 2-0 FiberWire. The retinaculum was repaired with 3-0 Vicryl. The medial capsule was repaired with a combination of 2-0 FiberWire 3-0 Vicryl. Inspection was negative for any PT tendon violation or insufficiency. The skin was closed in layers with 4-0 Monocryl and 4 nylon. A postoperative block To both ankle/footwas administered for pain control using 30 cc of 0.5% marcaine plain. Incision site was covered with betadine ointment and adaptic. The tourniquet was deflated at this time and hyperemia was noted to the operative foot and leg. A dry sterile dressing and a well padded posterior splint with added sugar tong was applied to Left lower extremitywhile the ankle with held dorsiflexed and inverted.The right lower extremity was redressed with Betadine soaked Adaptic, 4 x 4, Kerlix and Rajinder compression. It was further immobilized in a tall E boot. Patient tolerated anesthesia, procedure well with vascular status intact to Both surgical lower extremities. Patient was then transferred to PACU for continued recovery. Pending 3 view of the surgical foot/ankle x-ray. MONICA GARCIA DPM Jan 11, 2021 17:09
[2021-01-11] MEDS: HYDROcodone/APAP 5/325MG 1 TAB TABLET PO PRN (19:05)
--- NOTE | 2021-01-11 20:55 | RAD ---
Three-view left foot and three-view left ankle dated 01/11/2021. No comparison available. Clinical data indication: Postop. FINDINGS: 3 views left ankle show 2 corticated screws stabilizing fracture at the talar neck. Alignme nt near-anatomic. Distal tibia and fibular intact. There is diffuse soft tissue swelling with overlyi ng cast. 3 views of left foot show normal bony alignment. Evaluation is somewhat limited due to overlying cast . No displaced fracture. IMPRESSION: 1. Status post ORIF of talar neck fracture. Electronically signed by: Kalen Mata MD (01/11/2021 8:52 PM) TABATHA
--- NOTE | 2021-01-11 20:57 | RAD ---
Three-view right ankle dated 01/11/2021. COMPARISON: 01/07/2021. CLINICAL INDICATION: Postop FINDINGS: 3 views the right ankle show interval screw fixation of lateral malleoli or fracture with near anatom ic alignment. 2 lag screws have been placed. A comminuted fracture through the lateral talus is again demonstrated. Distal fibula is intact. There is been anterior grade intramedullary nail placement of the tibia with old healed fracture of the distal one third tibial shaft, unchanged. IMPRESSION: 1. Status post screw fixation of medial malleoli fracture. 2. Lateral talus fracture, unchanged. Electronically signed by: Kalen Mata MD (01/11/2021 8:55 PM) TABATHA
[2021-01-11] MEDS: GABAPENTIN 100 MG CAPSULE. PO SCH (21:11)
[2021-01-11] MEDS: MORPHINE SULFATE 4 MG/ML INJ. IV PRN (23:25)
[2021-01-12 02:19] VITALS: BP 130/67
[2021-01-12] MEDS: HYDROcodone/APAP 5/325MG 1 TAB TABLET PO PRN ×4 (04:52→20:46)
[2021-01-12] MEDS: MORPHINE SULFATE 4 MG/ML INJ. IV PRN ×3 (04:52→22:25)
[2021-01-12] MEDS: HEPARIN for SUB-Q USE 5,000 UNIT/ML VIAL. SQ SCH ×3 (06:25→22:19)
[2021-01-12 07:00] VITALS: BP 117/64
[2021-01-12 11:00] VITALS: BP 113/64
[2021-01-12] MEDS: GABAPENTIN 100 MG CAPSULE. PO SCH ×3 (11:24→20:45)
--- NOTE | 2021-01-12 13:22 | PDOC ---
[facility] PROGRESS NOTE Date of Service DOS: DATE: 01/12/21 TIME: 13:20 Chief Complaint Chief Complaint Trauma Mechanical fall from ladder Right acute nondisplaced medial malleolus and lateral talar process fractures Admit to hospitalist service for further management IV n.p.o. pain control Orthopedic consult External casting in the ED Neurovascular checks per floor protocol Defer to orthopedics for DVT prophylaxis Not indicated now GI prophylaxis ADA diet Full code Discussed with RN and SW Disposition inpatient management as above Surrogate decision maker is History of Present Illness History of Present Illness Patient is a 30-year-old [place]-speaking male who presents as a trauma alert after a fall from a 10 foot ladder. Patient states he was painting the house when he slipped from the ladder and landed on his feet. There is immediate ankle pain after he landed. Denies any loss of consciousness or trauma to the head. No medical history. Patient has had a previous right ankle surgery. Denies any blood thinners, fevers, chest pain, shortness of breath, abdominal pain, syncope, palpitation or irregular heart rhythms or dysuria. 01/12/2021: Patient seen and evaluated POD #1, s/p right medial malleoli open reduction internal fixation, left talar fracture open reduction and internal fixation. States pain currently well controlled. Not yet worked with PT/OT; recommend working with PT/OT as tolerable today. 01/11/2021: Surgery planned today. Reports some pain in his bilateral feet. Will need to work with PT/OT tomorrow. Discussed with RN. 01/10/2021: Afebrile. Denies significant pain. Surgery planned for tomorrow. He will need to begin working with PT/OT on the day following surgery. Discussed with RN. 01/09/2021: Afebrile. Pain controlled. I believe orthopedic surgery plan is to allow the swelling to subside over the next few days and then reevaluate for surgery at that time. Keep nonweightbearing until surgical intervention. Discussed with RN. 01/08/21 Patient seen and examined at bedside. Reports pain is well controlled. Awaiting plan from orthopedics. Otherwise no changes. Vitals/I&O Vitals/I&O: Vital Signs Date Time Temp Pulse Resp B/P (MAP) Pulse Ox O2 Delivery O2 Flow Rate FiO2 01/12/21 11:24 95 Room Air 2.0 01/12/21 11:00 98.1 82 18 113/64 (80) 98.1 I & O 01/11/21 01/11/21 01/12/21 15:00 23:00 07:00 Intake Total 2300 ml 0 ml Output Total 200 ml 335 ml Balance -200 ml 1965 ml 0 ml Physical Exam General: Alert, Oriented X3, Cooperative, No acute distress Heart: Other (No significant edema to the digits or the dorsal right foot or ankle. CFT less than 3 seconds 1 through 5, bilateral) Lungs: Clear Abdomen: Normal bowel sounds, Soft Extremities: Other (Bilateral lower extremities wrapped in soft cast) Skin: No breakdown, Other (No fracture blisters, skin tenting, or open lesion. Limited window through the splint anteriorly and medially, there is no severe ecchymosis to the provisional surgical site along the talar body/neck, left. There is no severe ecchymosis to the medial malleolus, right either.) Assessment and Plan Assessmemt and Plan Problems Medical Problems: (1) Closed fracture of body of left talus Status: Acute (2) Closed fracture of right talus Status: Acute (3) Medial malleolar fracture Status: Acute Comment Review of Relevant I have reviewed the following items riky (where applicable) has been applied. Medications: Current Medications Medications (Trade) Dose Ordered Sig/Kaleb Route PRN Reason Start Time Stop Time Status Last Admin Dose Admin Povidone Iodine (Betadine Oint) 28 cat STK-MED ONCE TP 01/11/21 15:52 01/11/21 15:52 DC 01/11/21 16:13 Gabapentin (Neurontin) 100 mg TID PO 01/11/21 21:00 01/12/21 11:24 Cefazolin Sodium/ Dextrose 50 ml @ 100 mls/hr 1X ONCE IV 01/11/21 17:00 01/11/21 17:03 DC 01/11/21 16:30 Morphine Sulfate (Morphine Sulfate) 4 mg PRN Q1HR PRN IV SEVERE PAIN 01/11/21 19:45 01/12/21 11:23 Justifications for Admission Other Justification Trauma with fall and right ankle fracture NOE JIMENEZ MD Jan 12, 2021 13:22
--- NOTE | 2021-01-12 14:26 | NUR ---
SW following. Discussed with RN, NATIVIDAD met with pt, pt reported his mother is coming from [place] tomorrow with a wheelchair, but if we can get him transportation home today he is happy to go home today. NATIVIDAD notified Dr. Rothman. NATIVIDAD will continue to follow.
[2021-01-12 15:00] VITALS: BP 128/67
--- NOTE | 2021-01-12 15:48 | PDOC ---
SUBJECTIVE Subjective S/p right medial ankle ORIF, left talar ORIF. At bedside, patient was seen resting comfortably without any distress. Denies any pain to the right lower extremity, occasional left foot/ankle sharp pain upwards to 6 out of 10. Otherwise, he has been compliant with elevation, icing, nonweightbearing restriction. The dressings are tolerated well and kept clean, dry and intact. He denies any constitutional symptoms. However, he denies any bowel movement in the last 4 days. OBJECTIVE Vital Signs Vital Signs Date Time Temp Pulse Resp B/P (MAP) Pulse Ox O2 Delivery O2 Flow Rate FiO2 01/12/21 13:28 95 Room Air 2.0 01/12/21 13:27 95 Room Air 2.0 01/12/21 11:24 95 Room Air 2.0 01/12/21 11:23 95 Room Air 01/12/21 11:00 98.1 82 18 113/64 (80) 95 Room Air 98.1 01/12/21 07:00 97.6 90 18 117/64 (81) 95 Room Air 97.6 01/12/21 05:22 18 01/12/21 05:22 18 01/12/21 04:52 20 99 Room Air 01/12/21 04:52 99 Room Air 2.0 01/12/21 02:19 98.0 91 18 130/67 (88) 99 Room Air 98.0 01/11/21 23:55 20 98 Room Air 01/11/21 23:25 18 98 Room Air 01/11/21 22:55 98.1 93 18 123/65 (84) 100 Room Air 98.1 01/11/21 20:00 Room Air 01/11/21 19:35 20 95 Nasal Cannula 2.0 01/11/21 19:35 20 95 Nasal Cannula 2.0 01/11/21 19:05 Room Air 01/11/21 19:05 Room Air 01/11/21 18:15 91 18 132/79 (96) 95 Room Air 01/11/21 18:01 94 18 131/72 (91) 98 Room Air 01/11/21 17:45 95 18 131/74 (93) 98 Room Air 01/11/21 17:40 94 18 125/75 (92) 96 Room Air 01/11/21 17:30 Nasal Cannula 2 01/11/21 17:28 98.5 94 15 134/75 93 Room Air 98.5 01/11/21 17:20 94 16 133/76 93 Room Air 01/11/21 17:20 15 93 Room Air 01/11/21 17:05 90 16 145/75 100 Room Air 01/11/21 16:50 90 16 135/69 100 Simple Mask 6 01/11/21 16:35 98.6 95 16 142/82 95 Room Air 98.6 01/11/21 16:35 Room Air I & O Intake and Output 01/12/21 07:00 Intake Total 2300 ml Output Total 535 ml Balance 1765 ml Intake Oral 100 ml IV Total 2200 ml Output Urine Total 525 ml Estimated Blood Loss 10 ml PHYSICAL EXAM Physical Exam General: AOx3 without distress Dermatology: Postoperative dressings are clean, dry and intact. No strikethrough was noted. Neurology: Light touch sensation to digits 1 through 5 are intact, bilateral Vascular: No ischemic or cyanotic changes to the digits 1 through 5, bilateral Musculoskeletal: -Able to move digits, bilateral -Left lower extremity is immobilized in a posterior splint with added sugar tong. Range of motion, palpation were deferred -Right lower extremity is immobilized in a soft compression dressing. Range of motion was deferred. Minimal to no TTP to the medial ankle with palpation -Calf is soft and nontender, bilateral ASSESSMENT/PLAN Assessment/Plan S/p January 11, 2021 right medial ankle ORIF, left talar ORIF -Explained to family and patient that the right medial ankle fracture is isolated without any concomitant proximal fibular fracture or syndesmotic joint instability upon stress. The lateral talar process fracture is comminuted however nondisplaced. No surgical intervention is indicated for talus. Educated them on the risk of arthritis in the future. As for the left talar fracture, the comminuted loose body in the ankle gutter and joint were excised. The main articular surface across the ankle joint remained relatively intact after debridement. 2 screws were used to stabilize the talar neck/body fractures. The risks and barriers with talar body fracture and recovery is AVN, persistent pain, DJD, neuralgia and wound dehiscence. Patient and family verbalized understanding -From my standpoint, patient is safe to discharge home as long as the pain is well controlled through oral medicine, demonstrate the ability to pivot, transfer without putting pressure on the left lower extremity with physical therapy, supportive and safe home going environment -This is the discharge instruction after surgery: 1. Activity: Strict nonweightbearing to the left lower extremity while immobilized in a splint. Minimal touchdown on right foot while protected in the tall Eboot upwards to 5 minutes/h if the pain is less than 3 out of 10. When at rest, it is okay to remove the boot off the right lower extremity. 2. Dressing change: Keep both lower extremity dressings clean, dry and intact. Prematurely taking off the dressing or getting the dressing wet/dirty will increase the risk of infection 3. Elevate both feet with toes to the heart level, ideally 45 minutes/h to control and manage swelling 4. Pain management: Gabapentin 100 mg, 3 times daily on schedule for 15 days, Tylenol 650 mg, 3 times a day on schedule for 10 days, Alden 5/325 mg, every 6 hours as needed [pain greater than 5/10], #20. 5. Ice behind both knees, 5 minutes/h as needed for pain 6. Our office will call patient for postoperative follow-up, 2 weeks from the surgery date 7. Please discharge with incentive spirometry, and encourage compliance 8. DVT prophylaxis: Per hospitalist recommendation for 14 days after surgery 9. Monitor for signs of infection or any constitutional symptoms and return with caution Justifications for Admission Other Justification Trauma with fall and right ankle fracture MONICA GARCIA DPM Jan 12, 2021 15:47
[2021-01-12] MEDS ORDERED: SENNOSIDES/DOCUSATE 8.6/50MG TABLET. PO PRN (16:00)
[2021-01-12] MEDS ORDERED: ACETAMINOPHEN 325 MG TABLET. PO PRN (16:00)
--- NOTE | 2021-01-12 16:22 | NUR ---
Spoke to Dr. Hawkins who states patient may discharge on 01/13/21 if meets safety criteria referenced in his note on 01/12/21 including being seen by PT/OT prior to discharge, VTE prophylaxis per hospitalist, and pain medications provided to patient per hospitalist (Dr. Hawkins left recommendations in note).
[2021-01-12 19:00] VITALS: BP 125/84
--- NOTE | 2021-01-12 21:24 | NUR ---
iyer discontinued at 01/12/21 [id number]
[2021-01-12 22:29] VITALS: BP 118/66
[2021-01-13 02:44] VITALS: BP 126/68
[2021-01-13] MEDS: HYDROcodone/APAP 5/325MG 1 TAB TABLET PO PRN ×4 (05:08→20:49)
[2021-01-13] MEDS: HEPARIN for SUB-Q USE 5,000 UNIT/ML VIAL. SQ SCH ×3 (05:11→21:29)
[2021-01-13 07:00] VITALS: BP 141/85
[2021-01-13 08:25] LABS: RED BLOOD COUNT 4.55 x10^6/uL (4.30-5.70); RED CELL DISTRIBUTION WIDTH 13.6 % (11.5-14.5); WHITE BLOOD COUNT 9.7 x10^3/uL (4.0-11.0)
[2021-01-13 08:42] LABS: CALCIUM 9.2 mg/dL (8.5-10.1); GFR 86.6; POTASSIUM 4.3 mmol/L (3.5-5.1)
[2021-01-13] MEDS: GABAPENTIN 100 MG CAPSULE. PO SCH ×3 (10:12→20:50)
--- NOTE | 2021-01-13 10:24 | NUR ---
SW following. Discussed with RN, pt needing to demonstrate safe transferring with PT/OT today prior to discharge. Pt's mother bringing a wheelchair for pt. SW will continue to follow.
[2021-01-13 11:00] VITALS: BP 161/86
[2021-01-13] MEDS: MORPHINE SULFATE 4 MG/ML INJ. IV PRN ×3 (13:13→21:31)
--- NOTE | 2021-01-13 14:23 | PDOC ---
[facility] PROGRESS NOTE Date of Service DOS: DATE: 01/13/21 TIME: 14:21 Chief Complaint Chief Complaint Trauma Mechanical fall from ladder Right acute nondisplaced medial malleolus and lateral talar process fractures Admit to hospitalist service for further management IV n.p.o. pain control Orthopedic consult External casting in the ED Neurovascular checks per floor protocol Defer to orthopedics for DVT prophylaxis Not indicated now GI prophylaxis ADA diet Full code Discussed with RN and SW Disposition inpatient management as above Surrogate decision maker is History of Present Illness History of Present Illness Patient is a 30-year-old Latvian-speaking male who presents as a trauma alert after a fall from a 10 foot ladder. Patient states he was painting the house when he slipped from the ladder and landed on his feet. There is immediate ankle pain after he landed. Denies any loss of consciousness or trauma to the head. No medical history. Patient has had a previous right ankle surgery. Denies any blood thinners, fevers, chest pain, shortness of breath, abdominal pain, syncope, palpitation or irregular heart rhythms or dysuria. 01/13/2021: Work with physical therapy, still having difficulty with transitioning. Complains of pain in bilateral ankles. Discussed with PT, they are concerned about patient's ability to discharge home with family care at this time. Will provide further IV pain management prior to discharge home. Anticipate discharge home with family care on Saturday. 01/12/2021: Patient seen and evaluated POD #1, s/p right medial malleoli open reduction internal fixation, left talar fracture open reduction and internal fixation. States pain currently well controlled. Not yet worked with PT/OT; recommend working with PT/OT as tolerable today. 01/11/2021: Surgery planned today. Reports some pain in his bilateral feet. Will need to work with PT/OT tomorrow. Discussed with RN. 01/10/2021: Afebrile. Denies significant pain. Surgery planned for tomorrow. He will need to begin working with PT/OT on the day following surgery. Discussed with RN. 01/09/2021: Afebrile. Pain controlled. I believe orthopedic surgery plan is to allow the swelling to subside over the next few days and then reevaluate for surgery at that time. Keep nonweightbearing until surgical intervention. Discussed with RN. 01/08/21 Patient seen and examined at bedside. Reports pain is well controlled. Awaiting plan from orthopedics. Otherwise no changes. Vitals/I&O Vitals/I&O: Vital Signs Date Time Temp Pulse Resp B/P (MAP) Pulse Ox O2 Delivery O2 Flow Rate FiO2 01/13/21 13:43 Room Air 01/13/21 11:00 98.4 87 18 161/86 (111) 95 98.4 01/12/21 19:43 2.0 I & O 01/12/21 01/12/21 01/13/21 14:59 22:59 06:59 Intake Total 540 ml Output Total 430 ml 400 ml 800 ml Balance -430 ml -400 ml -260 ml Physical Exam General: Alert, Oriented X3, Cooperative, No acute distress Heart: Other (No significant edema to the digits or the dorsal right foot or ankle. CFT less than 3 seconds 1 through 5, bilateral) Lungs: Clear Abdomen: Normal bowel sounds, Soft Extremities: Other (Bilateral lower extremities wrapped in soft cast) Skin: No breakdown, Other (No fracture blisters, skin tenting, or open lesion. Limited window through the splint anteriorly and medially, there is no severe ecchymosis to the provisional surgical site along the talar body/neck, left. There is no severe ecchymosis to the medial malleolus, right either.) Labs Labs: Laboratory Tests Test 01/13/21 07:55 White Blood Count 9.7 x10^3/uL (4.0-11.0) Red Blood Count 4.55 x10^6/uL (4.30-5.70) Hemoglobin 15.0 g/dL (13.0-17.5) Hematocrit 43.0 % (39.0-53.0) Mean Corpuscular Volume 94 fL (79-100) Mean Corpuscular Hemoglobin 33 pg (25-35) Mean Corpuscular Hemoglobin Concent 35 g/dL (31-37) Red Cell Distribution Width 13.6 % (11.5-14.5) Platelet Count 285 x10^3/uL (140-400) Sodium Level 140 mmol/L (136-145) Potassium Level 4.3 mmol/L (3.5-5.1) Chloride Level 102 mmol/L (98-107) Carbon Dioxide Level 28 mmol/L (21-32) Anion Gap 10 (6-14) Blood Urea Nitrogen 15 mg/dL (8-26) Creatinine 1.0 mg/dL (0.7-1.3) Estimated GFR (Cockcroft-Gault) 86.6 Glucose Level 108 mg/dL (70-99) Calcium Level 9.2 mg/dL (8.5-10.1) Assessment and Plan Assessmemt and Plan Problems Medical Problems: (1) Closed fracture of body of left talus Status: Acute (2) Closed fracture of right talus Status: Acute (3) Medial malleolar fracture Status: Acute Comment Review of Relevant I have reviewed the following items riky (where applicable) has been applied. Justifications for Admission Other Justification Trauma with fall and right ankle fracture NOE JIMENEZ MD Jan 13, 2021 14:23
[2021-01-13 15:00] VITALS: BP 137/58
[2021-01-13 19:00] VITALS: BP 137/79
[2021-01-13] MEDS ORDERED: POLYVINYL ALCOHOL 1.4% OPHTH SOLUTION 15ML BOTTLE. OU PRN (19:15)
[2021-01-13 23:00] VITALS: BP 118/78
[2021-01-14] MEDS: HYDROcodone/APAP 5/325MG 1 TAB TABLET PO PRN ×5 (01:12→21:11)
[2021-01-14] MEDS: MORPHINE SULFATE 4 MG/ML INJ. IV PRN ×2 (01:13→16:10)
[2021-01-14] MEDS: HEPARIN for SUB-Q USE 5,000 UNIT/ML VIAL. SQ SCH ×3 (05:36→21:12)
[2021-01-14 07:00] VITALS: BP 144/91
[2021-01-14] MEDS: GABAPENTIN 100 MG CAPSULE. PO SCH ×3 (08:41→21:11)
[2021-01-14 11:05] VITALS: BP 131/87
[2021-01-14 14:54] VITALS: BP 135/78
--- NOTE | 2021-01-14 16:48 | PDOC ---
[facility] PROGRESS NOTE Date of Service DOS: DATE: 01/14/21 TIME: 16:47 Chief Complaint Chief Complaint Trauma Mechanical fall from ladder Right acute nondisplaced medial malleolus and lateral talar process fractures Admit to hospitalist service for further management IV n.p.o. pain control Orthopedic consult External casting in the ED Neurovascular checks per floor protocol Defer to orthopedics for DVT prophylaxis Not indicated now GI prophylaxis ADA diet Full code Discussed with RN and SW Disposition inpatient management as above Surrogate decision maker is History of Present Illness History of Present Illness Patient is a 30-year-old Welsh-speaking male who presents as a trauma alert after a fall from a 10 foot ladder. Patient states he was painting the house when he slipped from the ladder and landed on his feet. There is immediate ankle pain after he landed. Denies any loss of consciousness or trauma to the head. No medical history. Patient has had a previous right ankle surgery. Denies any blood thinners, fevers, chest pain, shortness of breath, abdominal pain, syncope, palpitation or irregular heart rhythms or dysuria. 01/14/2021: Still with bilateral ankle pain. Will provide continue pain management. Encourage working with PT. Aim for discharge tomorrow, or the next day. 01/13/2021: Work with physical therapy, still having difficulty with transitioning. Complains of pain in bilateral ankles. Discussed with PT, they are concerned about patient's ability to discharge home with family care at this time. Will provide further IV pain management prior to discharge home. Anticipate discharge home with family care on Saturday. 01/12/2021: Patient seen and evaluated POD #1, s/p right medial malleoli open reduction internal fixation, left talar fracture open reduction and internal fixation. States pain currently well controlled. Not yet worked with PT/OT; recommend working with PT/OT as tolerable today. 01/11/2021: Surgery planned today. Reports some pain in his bilateral feet. Will need to work with PT/OT tomorrow. Discussed with RN. 01/10/2021: Afebrile. Denies significant pain. Surgery planned for tomorrow. He will need to begin working with PT/OT on the day following surgery. Discussed with RN. 01/09/2021: Afebrile. Pain controlled. I believe orthopedic surgery plan is to allow the swelling to subside over the next few days and then reevaluate for surgery at that time. Keep nonweightbearing until surgical intervention. Discussed with RN. 01/08/21 Patient seen and examined at bedside. Reports pain is well controlled. Awaiting plan from orthopedics. Otherwise no changes. Vitals/I&O Vitals/I&O: Vital Signs Date Time Temp Pulse Resp B/P (MAP) Pulse Ox O2 Delivery O2 Flow Rate FiO2 01/14/21 16:11 Room Air 01/14/21 14:54 97.7 86 20 135/78 (97) 96 97.7 I & O 01/13/21 01/13/21 01/14/21 15:00 23:00 07:00 Output Total 1450 ml 700 ml Balance -1450 ml -700 ml Physical Exam General: Alert, Oriented X3, Cooperative, No acute distress Heart: Other (No significant edema to the digits or the dorsal right foot or ankle. CFT less than 3 seconds 1 through 5, bilateral) Lungs: Clear Abdomen: Normal bowel sounds, Soft Extremities: Other (Bilateral lower extremities wrapped in soft cast) Skin: No breakdown, Other (No fracture blisters, skin tenting, or open lesion. Limited window through the splint anteriorly and medially, there is no severe ecchymosis to the provisional surgical site along the talar body/neck, left. There is no severe ecchymosis to the medial malleolus, right either.) Assessment and Plan Assessmemt and Plan Problems Medical Problems: (1) Closed fracture of body of left talus Status: Acute (2) Closed fracture of right talus Status: Acute (3) Medial malleolar fracture Status: Acute Comment Review of Relevant I have reviewed the following items riky (where applicable) has been applied. Medications: Current Medications Medications (Trade) Dose Ordered Sig/Kaleb Route PRN Reason Start Time Stop Time Status Last Admin Dose Admin Glycerin/ Hypromellose/ Polyethylene (Artificial Tears) 1 drop PRN Q15MIN PRN OU DRY EYE 01/13/21 19:15 01/13/21 20:50 Justifications for Admission Other Justification Trauma with fall and right ankle fracture NOE JIMENEZ MD Jan 14, 2021 16:47
[2021-01-14 19:00] VITALS: BP 128/76
[2021-01-14 23:00] VITALS: BP 129/79
[2021-01-15 03:00] VITALS: BP 117/80
[2021-01-15] MEDS: HYDROcodone/APAP 5/325MG 1 TAB TABLET PO PRN ×4 (06:15→21:08)
[2021-01-15] MEDS: HEPARIN for SUB-Q USE 5,000 UNIT/ML VIAL. SQ SCH ×3 (06:16→21:09)
[2021-01-15] MEDS: MORPHINE SULFATE 4 MG/ML INJ. IV PRN (06:20)
[2021-01-15 07:00] VITALS: BP 121/87
[2021-01-15] MEDS: GABAPENTIN 100 MG CAPSULE. PO SCH ×3 (08:23→21:08)
[2021-01-15 11:00] VITALS: BP 128/84
--- NOTE | 2021-01-15 13:19 | PDOC ---
[facility] PROGRESS NOTE Date of Service DOS: DATE: 01/15/21 TIME: 13:18 Chief Complaint Chief Complaint Trauma Mechanical fall from ladder Right acute nondisplaced medial malleolus and lateral talar process fractures Admit to hospitalist service for further management IV n.p.o. pain control Orthopedic consult External casting in the ED Neurovascular checks per floor protocol Defer to orthopedics for DVT prophylaxis Not indicated now GI prophylaxis ADA diet Full code Discussed with RN and SW Disposition inpatient management as above Surrogate decision maker is History of Present Illness History of Present Illness Patient is a 30-year-old Bhutanese-speaking male who presents as a trauma alert after a fall from a 10 foot ladder. Patient states he was painting the house when he slipped from the ladder and landed on his feet. There is immediate ankle pain after he landed. Denies any loss of consciousness or trauma to the head. No medical history. Patient has had a previous right ankle surgery. Denies any blood thinners, fevers, chest pain, shortness of breath, abdominal pain, syncope, palpitation or irregular heart rhythms or dysuria. 01/15/2021: Feeling better. Pain improved. Work with PT and more functional today. Discussed discharging home with family care tomorrow. States mother will provide wheelchair. Discussed with RN. 01/14/2021: Still with bilateral ankle pain. Will provide continue pain management. Encourage working with PT. Aim for discharge tomorrow, or the next day. 01/13/2021: Work with physical therapy, still having difficulty with transitioning. Complains of pain in bilateral ankles. Discussed with PT, they are concerned about patient's ability to discharge home with family care at this time. Will provide further IV pain management prior to discharge home. Anticipate discharge home with family care on Saturday. 01/12/2021: Patient seen and evaluated POD #1, s/p right medial malleoli open reduction internal fixation, left talar fracture open reduction and internal fixation. States pain currently well controlled. Not yet worked with PT/OT; recommend working with PT/OT as tolerable today. 01/11/2021: Surgery planned today. Reports some pain in his bilateral feet. Will need to work with PT/OT tomorrow. Discussed with RN. 01/10/2021: Afebrile. Denies significant pain. Surgery planned for tomorrow. He will need to begin working with PT/OT on the day following surgery. Discu ssed with RN. 01/09/2021: Afebrile. Pain controlled. I believe orthopedic surgery plan is to allow the swelling to subside over the next few days and then reevaluate for surgery at that time. Keep nonweightbearing until surgical intervention. Discussed with RN. 01/08/21 Patient seen and examined at bedside. Reports pain is well controlled. Awaiting plan from orthopedics. Otherwise no changes. Vitals/I&O Vitals/I&O: Vital Signs Date Time Temp Pulse Resp B/P (MAP) Pulse Ox O2 Delivery O2 Flow Rate FiO2 01/15/21 11:06 Room Air 01/15/21 11:00 97.5 78 18 128/84 (99) 95 97.5 01/15/21 06:15 2.0 I & O 01/14/21 01/14/21 01/15/21 14:59 22:59 06:59 Intake Total 400 ml 200 ml Output Total 400 ml 1075 ml Balance 0 ml 200 ml -1075 ml Physical Exam General: Alert, Oriented X3, Cooperative, No acute distress Heart: Other (No significant edema to the digits or the dorsal right foot or ankle. CFT less than 3 seconds 1 through 5, bilateral) Lungs: Clear Abdomen: Normal bowel sounds, Soft Extremities: Other (Bilateral lower extremities wrapped in soft cast) Skin: No breakdown, Other (No fracture blisters, skin tenting, or open lesion. Limited window through the splint anteriorly and medially, there is no severe ecchymosis to the provisional surgical site along the talar body/neck, left. There is no severe ecchymosis to the medial malleolus, right either.) Assessment and Plan Assessmemt and Plan Problems Medical Problems: (1) Closed fracture of body of left talus Status: Acute (2) Closed fracture of right talus Status: Acute (3) Medial malleolar fracture Status: Acute Comment Review of Relevant I have reviewed the following items riky (where applicable) has been applied. Justifications for Admission Other Justification Trauma with fall and right ankle fracture NOE JIMENEZ MD Jan 15, 2021 13:19
[2021-01-15 15:00] VITALS: BP 134/88
[2021-01-15 19:00] VITALS: BP 115/77
[2021-01-15 23:00] VITALS: BP 119/76
[2021-01-16 03:00] VITALS: BP 116/84
[2021-01-16] MEDS: HYDROcodone/APAP 5/325MG 1 TAB TABLET PO PRN ×3 (03:16→15:20)
[2021-01-16] MEDS: HEPARIN for SUB-Q USE 5,000 UNIT/ML VIAL. SQ SCH (05:48)
[2021-01-16 07:00] VITALS: BP 124/75
[2021-01-16] MEDS: GABAPENTIN 100 MG CAPSULE. PO SCH ×2 (08:04→15:20)
--- NOTE | 2021-01-16 10:18 | NUR ---
SW following. Discussed with RN, pt mother has wheelchair for pt. Pt able to transfer safely so is able to discharge home. Anticipate discharge home today with family care. Med Assist following for self pay status. SW will continue to follow.
[2021-01-16 10:48] VITALS: BP 132/88
[2021-01-16] MEDS ORDERED: SENN-189 PO (12:03)
[2021-01-16] MEDS ORDERED: GABA-585 PO (12:03)
[2021-01-16] MEDS ORDERED: HYDR-2761 PO (12:03)
--- NOTE | 2021-01-16 12:05 | DISCH ---
DISCHARGE INSTRUCTIONS Condition on Discharge Condition on Discharge: Stable Activity After Discharge Activity Instructions for Disc: Other, see below (Nonweightbearing in both lower extremities) Lifting Instructions after Dis: Do not lift >10 pounds Weight Bearing Status after Di: Touch down weight bearing, Non weight bearing Diet after Discharge Diet after Discharge: Cardiac Follow-Up Follow up with: PCP within 2 weeks of discharge Follow Up With: Orthopedic surgery as scheduled SUBHA DAVIS MD Jan 16, 2021 12:05
[2021-01-16] MEDS ORDERED: HYDR-2763 PO (13:54)
[2021-01-16 14:53] VITALS: BP 138/63
--- NOTE | 2021-01-16 16:48 | NUR ---
Discharge Note: JAMES PEARCE GARNETT Discharge instructions and discharge home medications reviewed with Patient and a copy given. All questions have been answered and understanding verbalized. The following instructions and handouts were given: diet, activity, medication list, follow up instructions all provided to patient. Discontinued lines and drains: Peripheral IV discontinued and catheter intact. Patient discharged to Home or Self Care with Family Member via Wheelchair
== END 2021-01-16 16:35 | disposition home or self-care (01) | DRG 494 ==
LOC: ER 16:24 → 4 NORTH 18:22
PROVIDERS: ADMIT Internal Medicine; ATTEND Internal Medicine
PROC: 0QSM04Z Reposition Left Tarsal with Internal Fixation Device, Open Approach (ICD-10-PCS; 2021-01-11)
PROC: 3E0T3BZ Introduction of Anesthetic Agent into Peripheral Nerves and Plexi, Percutaneous Approach (ICD-10-PCS; 2021-01-11)
PROC: 3E0T33Z Introduction of Anti-inflammatory into Peripheral Nerves and Plexi, Percutaneous Approach (ICD-10-PCS; 2021-01-11)
PROC: 0QSG04Z Reposition Right Tibia with Internal Fixation Device, Open Approach (ICD-10-PCS; principal; 2021-01-11 12:30)
DX: S82.54XA Nondisplaced fracture of medial malleolus of right tibia, initial encounter for closed fracture (principal); S92.101A Unspecified fracture of right talus, initial encounter for closed fracture; S92.122A Displaced fracture of body of left talus, initial encounter for closed fracture; W11.XXXA Fall on and from ladder, initial encounter; W23.0XXA Caught, crushed, jammed, or pinched between moving objects, initial encounter; Y93.89 Activity, other specified; Y92.89 Other specified places as the place of occurrence of the external cause; Y99.8 Other external cause status
CPT/HCPCS: 29515; 36415; 70450; 71045; 72125; 72131; 72170; 73590; 73610; 73630; 80048; 80053; 83735; 84100; 85025; 85027; 86850; 86900; 86901; 96374; 96376; A4223; A4314; A4657; A4930; A6223; A6253; A6402; A6443; A6457; C1713; C1769; J0330; J0690; J1100; J1170; J1644; J2250; J2270; J2370; J2405; J2704; J2710; J3010; J3490; J7030; J7120; 73700-50; 97530-GO; 97530-GP; 99285-25; G0378